=== PATIENT | male | born 1950 | race Caucasian/White ===

== ENCOUNTER → 2017-05-23 | Outpatient (CLI) | payer OTHER ==
[~2017-05-23] MED LIST: CALC-354; CHOL400T PO; KRIL1CAP7 PO; MULT-845 PO; OMEP20TA14 PO; RANI300T2 PO; SILD100T PO
[2017-05-23 10:04] VITALS: BP 135/87; PULSE 91; TEMP 36.9; O2SAT 98
== END | disposition home or self-care (01) ==
LOC: C.ONC 09:01
PROVIDERS: ATTEND Physician Assistant Medical
DX: C61 Malignant neoplasm of prostate (principal)

== ENCOUNTER → 2017-06-29 | Outpatient (CLI) | payer OTHER ==
[~2017-06-29] MED LIST changes: -CHOL400T PO; +GADAVIST IV PRN
--- NOTE | 2017-06-29 12:07 | DIAGNOSTIC IMAGING REPORT ---
PROSTATE MRI COMBO CLINICAL HISTORY: 67 years-old Male presenting with PROSTATE CA. PSA 5.9 ng/mL. TECHNIQUE: Multisequence, multiplanar MR imaging of the prostate was performed before and after the administration of intravenous contrast. Additional postprocessing was performed on a separate [employer] workstation by the radiologist for 3-D volumetric segmentation of the prostate IV contrast: 8 COMPARISON: None. FINDINGS: Prostate: The prostate measures 5.1 x 3.6 x 4.0 cm (DynaCAD prostate boundary segmentation volume 39.7 mL). Mild changes of benign prostatic hyperplasia. Precontrast T1 weighted imaging demonstrates few scattered foci of intrinsic T1 hyperintensity, possibly proteinaceous/hemorrhagic material. Seminal vesicles normal. Suspicious lesion(s) described below: Lesion ([employer]aCAD TASHA) 1: Location: Left posterolateral peripheral zone at the apex. The lesion does not extend across the midline. Size: 13 x 5 mm T2W: 4. Circumscribed, homogeneous moderately hypointense lesion. The lesion has an extended interface with the overlying capsule. No definite extra prostatic extension though this increases the risk for microinvasion. DWI: 4. Focal markedly hypointense on ADC and markedly hyperintense on high b-value DWI. DCE: Positive. Focal enhancement corresponding to a suspicious finding, earlier or contemporaneous with adjacent normal tissue. PI-RADS: 4. Clinically significant cancer is likely to be present. Lesion (DynaCAD TASHA) 2: Location: Right anterior transition zone at the mid gland. The lesion does not extend across the midline. Size: 10 x 5 mm T2W: 4. Circumscribed, homogeneous moderately hypointense lesion. No evidence of extraprostatic extension. DWI: 4. Focal markedly hypointense on ADC and markedly hyperintense on high b-value DWI. DCE: Negative. Diffuse enhancement not corresponding to a focal finding on other sequences. PI-RADS: 4. Clinically significant cancer is likely to be present. Bladder: Normal. Bowel: Visualized portion of the rectum normal. Peritoneum: Evidence for [place] gel placement. This is located between the prostate gland and rectum. This measures up to 1.3 cm in thickness. Lymph nodes: No lymphadenopathy in the visualized portion of the pelvis. Vasculature: Iliac vessels patent. Abdominal wall: Normal. Osseous structures: Normal bone marrow signal intensity. IMPRESSION: 1. Suspicious lesions within the prostate gland is described above which likely corresponds to the biopsy-proven malignancy. 2. The [place] gel appears to be in good location and measures up to 1.3 cm in thickness. Electronically signed by: Ap Tanner M.D. 06/29/2017 12:06 PM Dictated Date/Time: 06/29/2017 11:27 AM
== END | disposition home or self-care (01) ==
LOC: C.MRIBC 06-22 09:14
PROVIDERS: ATTEND Radiology Radiation Oncology
DX: C61 Malignant neoplasm of prostate (principal)

== ENCOUNTER → 2017-09-13 | Outpatient (CLI) | payer OTHER ==
[~2017-09-13] MED LIST changes: -GADAVIST IV PRN
[2017-09-13 14:04] VITALS: BP 129/86; PULSE 84; TEMP 36.4; O2SAT 96
--- NOTE | 2017-09-13 16:00 | Radiation Oncology Follow-Up ---
Radiation Oncology Follow-Up Date of Visit Sep 13, 2017. Reason For Visit One-month follow-up in cancer survivorship care plan Radiation Completion Date 08/16/17 Diagnosis (1) Prostate cancer Status: Acute Onset Date: 12/18/2016 Location: Both lobes of the prostate Histology Subtype: Adenocarcinoma Stage: ll (Biopsy stage) Permanent Comment: Rising PSA, pretreatment PSA 5.89 Status post ultrasound-guided biopsies 12/18/2016 Adenocarcinoma the prostate Tyra 3+3 and 3+4 Prostate volume 44 Prostate density 0.13 Recheck PSA May 23, 2017 was 7.330 No hormone suppression required Status post completion of radiation therapy August 16, 2017. He received 7000 centigrade utilizing hypo-fractionation. Last Edited By: Susana Rivera on Sep 13, 2017 15:58 History of Present Illness Mr. Jarvis is without a family history of prostate cancer. He is been followed with screening prostatespecific antigens. Results going back to 2000 were reviewed. His prostate-specific antigen has remained under 2005. On 02/21/2006 his prostate-specific antigen was 9.89 however these results were rechecked and on 06/29/2006 the prostate-specific antigen was 2.01. Prostate-specific antigen on 03/13/2007 was 1.8. Prostate-specific antigen on 2007 was 2.56. Prostate-specific antigen on 03/17/2009 was 2.05. Prostate- specific antigen in 05/25/2010 was 3.03. Prostate-specific antigen on 07/05/2011 was 2.76. Prostate-specific antigen on 10/12/2003 was 3.6 to the area prostatespecific antigen on 10/07/2014 was 4.28. Prostate-specific antigen on 10/22/2015 was 5.06. Prostate-specific antigen on 11/07/2016 was 5.89. With this persistent rise in prostate-specific antigen patient was seen by Dr. Mary Keith. She discussed the option of ultrasound-guided prostate biopsy due to the persistent prostate-specific antigen rise. The patient ultimately did agree. Ultrasound-guided biopsies were therefore performed on 12/18/2016. Estimated prostate volume was 44 g. With a presenting prostate-specific antigen of 5.89 his prostate-specific antigen density was 0.13. A total of 17 biopsies were taken. Biopsies from the left lateral base, left base, right base and right lateral base were benign. Biopsy from the left lateral mid gland was positive for prostatic adenocarcinoma [place] grade of 3+ 3 involving 70% of the core tissue sample without evidence of perineural invasion. 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 3 biopsies from the right mid gland revealed benign prostate tissue. Single biopsy from the right lateral mid gland was positive for prostatic adenocarcinoma [place] grade 3+4 involving 60% of the course tissue sample without evidence of perineural invasion. Single biopsy from the left lateral apex was positive for prostatic adenocarcinoma [place] grade 3+3 involving 60% of the core tissue sample without evidence of perineural invasion. Therefore total of 3 out of 17 biopsies were positive. Two were Tyra grade 3+3 and 1 was Tyra grade 3+4. Tyra pattern 4 component was less than 5% of the total tissue sample. Accession #: [id number]. The patient returned to review the biopsy information with Dr. Keith. She reviewed with the patient the treatment options. She arranged for the patient to be seen by Dr. Petr Montes. He saw Mr. Jarvis on 01/09/2017. He did an excellent job reviewing the treatment options for this patient. We were also asked to see the patient in referral to review with him the radiation treatment options. All options of therapy were reviewed with the patient. His ultimate decision was to go forward with radiation therapy. He had placement of Space OAR and gold fiducial markers on June 20, 2017. He completed treatment on August 16, 2017. He received 7000 centigrade utilizing hypo-fractionation. Interim History He has been doing well over the past month. In the past week he has noticed a great improvement in his urinary side effects. Today gave an AUA score of 8. At the end of treatment he had given an AUA score of 16. He had been taking Advil 2 pills twice a day at the end of treatment for his side effects. He did continue on the Advil for approximately a week and then steadily decreased the [id number] medication. He now uses it rarely. The bowel side effects of increased loose stool has also greatly improved. He does continue to take the Metamucil. He completed and expanded prostate cancer index composite for clinical practice and gave a score of 2 of 12 and urinary incontinence symptoms. He gave a score of 3 of 12 and urinary irritation symptoms. He gave a score of 3 of 12 and bowel symptoms. He gave a score of 4 of 12 and sexual symptoms. He gave a score of 0 12 and hormonal vitality symptoms. His total was 12 of 60. Allergies Coded Allergies: BEE STING (Verified Allergy, Unknown, ANAPHYLAXIS, 08/07/13) Iodinated Diagnostic Agents (Verified Allergy, Unknown, Swelling; Anaphylaxis;, 01/18/17) Levofloxacin (Verified Allergy, Unknown, general joint pain/burning, ) Tamsulosin (Unverified Allergy, Unknown, FLUSHED and itchy/burning of eyes , 01/18/17) Home Medications Scheduled Calcium Carbonate-Cholecalcife (Caltrate 600+D), DAILY Krill Oil (Krill Oil [place]-3), 1 CAP PO DAILY Multiple Vitamins W/ Minerals (Centrum Silver Adult 50+), 1 TAB PO QAM Omeprazole Magnesium (Prilosec Otc), 20 MG PO QAM Sildenafil Citrate (Viagra), 100 MG PO PRN Scheduled PRN Ranitidine Hcl (Zantac), 1 TAB PO HS PRN for Dyspepsia Review of Systems Gastrointestinal: Symptoms: WNL GI Comments: Metamucil BID Oral: Symptoms: No Problems Respiratory: Symptoms: WNL Urinary: Symptoms: WNL, Nocturia Comments: Nocturia x 1, See AUA & EPIC Skin: Symptoms: No Problems Physical Exam Vital Signs Date Time Temp Pulse Resp B/P (MAP) Pulse Ox O2 Delivery O2 Flow Rate FiO2 09/13/17 14:04 36.4 84 16 129/86 96 Fatigue: None General Appearance: no apparent distress Eyes: normal inspection, EOMI ENT: normal ENT inspection, hearing grossly normal Respiratory/Chest: lungs clear, no respiratory distress, no accessory muscle use Cardiovascular: regular rate, rhythm, no gallop, no murmur Abdomen: non tender, soft, no organomegaly Extremities: no pedal edema Neurologic/Psychiatric: no motor/sensory deficits, alert, normal mood/affect Skin: warm/dry Lymphatic: no adenopathy Pain Management Patient Reports Pain: No Pain Management Plan He denied pain therefore requires no pain management. Laboratory Laboratory Results: were reviewed, and pertinent findings noted below Laboratory Comments: Test 09/13/17 14:15 Prostate Specific Antigen 5.820 ng/ml (0.000-4.000) Pathology Pathology Results: were reviewed, and pertinent findings noted in HPI Imaging Imaging Studies: not applicable Assessment & Plan Plan: PSA was drawn today. He will be notified as to the results. He will continue regular follow-up with Dr. Keith and his primary care provider. He has an appointment see Dr. Keith November 15, 2017. He is to have a PSA prior to that visit. Today we completed a cancer survivorship care plan. A copy of the document was given to the patient. He was given a survivorship booklet. We asked him to return to our office in 6 months. He may call if he has any questions or concerns in the interim. Total Time In Follow-Up I spent 20 minutes speaking to the patient in performing examination. I spent 20 minutes reviewing information, preparing the survivorship document, and completing this note. Copy To Mary Keith MD; Alfonso Euceda M.D. ([facility])
== END | disposition home or self-care (01) ==
LOC: C.ONC 13:59
PROVIDERS: ATTEND Physician Assistant Medical
DX: Z08 Encounter for follow-up examination after completed treatment for malignant neoplasm (principal); Z92.3 Personal history of irradiation; Z85.46 Personal history of malignant neoplasm of prostate

== ENCOUNTER 2022-11-28 08:05 | Observation (INO) ==
[2022-11-28 08:31] LABS: iSTAT Creatinine 0.8 mg/dl (0.6-1.3); iSTAT Hemoglobin 13.3 g/dl (14.0-18.0); iSTAT Ionized Calcium 1.12 mmol/l (1.12-1.32); iSTAT Potassium 4.3 mmol/L (3.3-5.0)
--- NOTE | 2022-11-28 08:38 | Emergency Department Note ---
Impression & Plan Dizziness, Weakness, Ataxia ED Provider Note ED Provider Note NAME: EBER FISH AGE:72 SEX: Male : 1950 ARRIVES VIA: EMS INFORMANT: Patient ED PROVIDER(s): Aurelia Treviño DO CHIEF COMPLAINT: Dizziness, weakness HPI: This is a 72-year-old male presents emergency department via EMS from home due to concern for weakness and dizziness. Patient states he felt well yesterday, was out golfing, and felt well last night at bedtime. He states he got up to go to the bathroom this morning and felt weak and dizzy which he describes more as lightheaded than a sense of spinning. He states no prior history of vertigo. He states no recent change in routine medications although he was given a course of azithromycin last week by his dentist. Patient denies any recent travel or recent illness. He denies fevers, chills, headache, chest pain, palpitations, shortness of breath, cough. Patient noted to be very slow and deliberate with his speech. He states he does feel like it is harder than normal to formulate his words. PAST MEDICAL HISTORY:See Below PAST SURGICAL HISTORY:See Below FAMILY HISTORY:See Below SOCIAL HISTORY:See Below HOME MEDICATIONS:See Below ALLERGIES:See Below VITALS:See Below PHYSICAL EXAMINATION: GENERAL: alert, well appearing, well nourished, no distress, non-toxic EYE EXAM: normal conjunctiva, PERRL and EOM's grossly intact OROPHARYNX: no exudate, no erythema, lips, buccal mucosa, and tongue normal and mucous membranes are moist NECK: supple, no nuchal rigidity, no adenopathy, non-tender LUNGS: Clear to auscultation. Normal chest wall mechanics, no w/r/r HEART: no murmurs, S1 normal and S2 normal ABDOMEN: abdomen soft, non-tender, normo-active bowel sounds, no masses, no rebound or guarding. BACK: Back is symmetrical on inspection and there is no deformity, no midline tenderness, no CVA tenderness. SKIN: no rashes, petechiae, orbruising UPPER EXTREMITIES: upper extremities are grossly normal. FROM, nml pulses b/l. LOWER EXTREMITIES: No pitting edema. FROM, nml pulses b/l. NEURO EXAM: Normal sensorium, cranial nerves II-XII grossly intact, deliberate and slow speech without dysarthria, no facial droop,generalized weakness although left upper extremity and left lower extremity have accompanying mild ataxia and fatigue easier than the right. Gross sensation intact. Vital Signs: reviewed and remarkable Differential Diagnosis: ICH, CVA, LAVERNE, electrolyte abnormality, ACS, dissection, dysrhythmia, meningitis/encephalitis, tickborne illness, as well as others were concern MEDICAL DECISION MAKING: This is a 72-year-old male presents emergency department due to concern for weakness, dizziness, difficulty walking and a change in speech. Patient afebri le and vital signs stable. Labs drawn and sent, IV established, EKG performed at bedside interpreted by me and patient sent for CT of the head. Angiography of her neck to be performed as patient has anaphylaxis to IV dye. Noncontrast head CT was reassuring, although patient still had slight asymmetry as well as ataxia on a neuro exam and due to concern for underlying CVA, patient sent for stat MRI. Patient's other orders continue to result including reassuring labs, negative tickborne illness, negative bio fire nasal swab. MRI read as negative for acute process. Patient's speech did improve while he was present in the emergency room,, however he still complained of weakness, lightheadedness, and had a ataxia and an unsteady gait. I was concerned the patient was an ongoing fall risk. Due to concern for unclear etiology of symptoms and inability to walk, case was discussed with hospitalist for additional evaluation and management. I did discuss with them my conversation with him regarding his use of marijuana as this could be a contributing factor. Consultation(s): 1345: Discussed with Dr. Maria. ER Treatment Provided: See below 1002: Patient speech improved although he still complains of weakness, lightheadedness, and still has slight left-sided weakness compared to the right. We discussed additional MRI. Patient states he has had an MRI before though does get claustrophobic. We discussed small dose of Ativan to help facilitate this. 1250: Patient updated on MRI results at bedside. Repeat exam still shows some mild limb ataxia although improved compared to prior. Patient's speech is improved compared to prior. Patient denies any use of CBD containing products although admits to occasionally smoking weed. Diagnostics Interpreted By Me: -ECG: Normal sinus at 86, normal axis, normal intervals, no acute ST/T wave change -Cardiac Monitoring: An order was placed for continuous cardiac monitoring. The monitor shows a rate of [] with [] rhythm. -Laboratory studies: As stated above and show below. -Imaging studies: X-ray Chest: A single view study of the chest was reviewed and was negative for cardiomegaly, focal infiltrate, effusion, pulmonary edema, or wide mediastinum. 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 Surgical History History of arthroscopy of left knee History of cholecystectomy 2005 History of colonoscopy with polypectomy History of esophagogastroduodenoscopy (EGD) History of Mohs micrographic surgery for skin cancer multiple History of prostate biopsy History of root canal procedure Family History Mother Family hx of colon cancer Other No family history of adverse response to anesthesia Social History Smoking Status: Never smoker Second Hand Exposure: Yes (parents smoked); Do You Dip or Chew Tobacco: No; Hx Alcohol Use: Yes Alcohol type: beer and hard liquor Hx Substance Use: Yes Last Used Substance: Days (ago) Last Used Substance Other:: Yesterday Preferred Language: Polish Communication Ability: Effective Behavioral Sciences Department Chair Required: No Beliefs That Will Affect Care: None Current Living Situation: Alone Other Information That Helps Us Care for You: No Feels Safe at Home: Yes Safety Concerns: Feels Safe At This Time Assistive Devices: Glasses Allergies Allergies Allergy/AdvReac Type Severity Reaction Status Date / Time bee venom protein (honey bee) Allergy Severe ANAPHYLAXIS Verified 03/21/22 13:23 Iodinated Contrast Media Allergy Severe Swelling;An Verified 03/21/22 13:23 aphylaxis; levofloxacin Allergy Intermediate general Verified 03/21/22 13:23 joint pain/burning tamsulosin Allergy Intermediate FLUSHED Verified 03/21/22 13:23 and itchy/burning of eyes Home Meds Home Medications Medication Instructions Recorded Confirmed calcium carb,cit ER 600 mg-vit D3 1 tab PO QDD 01/16/19 11/28/22 12.5 mcg (500 unit) tablet,ext.rel ibuprofen-diphenhydramine citrate 1 cap PO HS PRN Sleep 01/16/19 11/28/22 200 mg-38 mg tablet (Advil PM) krill 1,000 mg-omega-3 170 mg-dha 1 cap PO QDD 01/16/19 11/28/22 50 mg-epa 80 uw-wpeztl-brreg capsule (krill oil) multivitamin 1 tab PO QDD 01/16/19 11/28/22 sildenafil (pulm.hypertension) 20 40 mg PO UD PRN Sexual Activity 01/16/19 11/28/22 mg tablet (Revatio) famotidine 20 mg tablet 20 mg PO DAILY PRN Acid Reflux 03/26/19 11/28/22 Previous Rx's Medication Instructions Recorded epinephrine 0.3 mg/0.3 mL 0.3 mg (0.3 mL) IM Q3H PRN 01/16/19 injection, auto-injector (EpiPen bronchodilation #2 ea 2-William) Results & Data (ED) Vital Signs Vital Signs - 24 hr 11/28/22 08:12 11/28/22 08:12 11/28/22 08:15 Temperature 36.9 C Temperature Source Oral Pulse Rate - Lying Pulse Rate - Sitting Pulse Rate - Standing Pulse Rate 91 H 85 Pulse Rate [Apical] Pulse Rate from SpO2 Sensor Respiratory Rate 14 Blood Pressure - Lying Blood Pressure - Sitting Blood Pressure- Standing Blood Pressure 138/79 Blood Pressure [Right Arm] Blood Pressure Mean 98 Blood Pressure Mean [Right Arm] Pulse Oximetry 95 89 L Oxygen Delivery Method Room Air Nasal Cannula Oxygen Flow Rate 0 Sepsis Recent Fever Within 48 Hours No Sepsis New/Unexplained Change in Mental Status No Sepsis Action Taken by Nursing No Action Required Oxygen Flow Rate - Titration 2 Pulse Oximetry Post Tiitration 96 11/28/22 08:14 11/28/22 08:30 11/28/22 08:30 Temperature Temperature Source Pulse Rate - Lying Pulse Rate - Sitting Pulse Rate - Standing Pulse Rate 112 H 82 Pulse Rate [Apical] Pulse Rate from SpO2 Sensor 82 Respiratory Rate 22 17 Blood Pressure - Lying Blood Pressure - Sitting Blood Pressure- Standing Blood Pressure 145/81 H Blood Pressure [Right Arm] Blood Pressure Mean 102 Blood Pressure Mean [Right Arm] Pulse Oximetry 95 Oxygen Delivery Method Nasal Cannula Oxygen Flow Rate 2 Sepsis Recent Fever Within 48 Hours Sepsis New/Unexplained Change in Mental Status Sepsis Action Taken by Nursing Oxygen Flow Rate - Titration Pulse Oximetry Post Tiitration 11/28/22 09:07 11/28/22 09:07 11/28/22 09:30 Temperature Temperature Source Pulse Rate - Lying Pulse Rate - Sitting Pulse Rate - Standing Pulse Rate 85 Pulse Rate [Apical] Pulse Rate from SpO2 Sensor 86 Respiratory Rate 17 Blood Pressure - Lying Blood Pressure - Sitting Blood Pressure- Standing Blood Pressure 140/84 139/79 Blood Pressure [Right Arm] Blood Pressure Mean 102 99 Blood Pressure Mean [Right Arm] Pulse Oximetry 97 Oxygen Delivery Method Nasal Cannula Oxygen Flow Rate 2 Sepsis Recent Fever Within 48 Hours Sepsis New/Unexplained Change in Mental Status Sepsis Action Taken by Nursing Oxygen Flow Rate - Titration Pulse Oximetry Post Tiitration 11/28/22 09:30 11/28/22 10:00 11/28/22 10:00 Temperature Temperature Source Pulse Rate - Lying Pulse Rate - Sitting Pulse Rate - Standing Pulse Rate 83 76 Pulse Rate [Apical] Pulse Rate from SpO2 Sensor 83 76 Respiratory Rate 16 14 Blood Pressure - Lying Blood Pressure - Sitting Blood Pressure- Standing Blood Pressure 134/78 Blood Pressure [Right Arm] Blood Pressure Mean 96 Blood Pressure Mean [Right Arm] Pulse Oximetry 98 98 Oxygen Delivery Method Oxygen Flow Rate Sepsis Recent Fever Within 48 Hours Sepsis New/Unexplained Change in Mental Status Sepsis Action Taken by Nursing Oxygen Flow Rate - Titration Pulse Oximetry Post Tiitration 11/28/22 10:30 11/28/22 10:30 11/28/22 11:00 Temperature Temperature Source Pulse Rate - Lying Pulse Rate - Sitting Pulse Rate - Standing Pulse Rate 77 Pulse Rate [Apical] Pulse Rate from SpO2 Sensor 77 Respiratory Rate 14 Blood Pressure - Lying Blood Pressure - Sitting Blood Pressure- Standing Blood Pressure 135/74 130/69 Blood Pressure [Right Arm] Blood Pressure Mean 94 89 Blood Pressure Mean [Right Arm] Pulse Oximetry 99 Oxygen Delivery Method Oxygen Flow Rate Sepsis Recent Fever Within 48 Hours Sepsis New/Unexplained Change in Mental Status Sepsis Action Taken by Nursing Oxygen Flow Rate - Titration Pulse Oximetry Post Tiitration 11/28/22 11:00 11/28/22 11:30 11/28/22 11:30 Temperature Temperature Source Pulse Rate - Lying Pulse Rate - Sitting Pulse Rate - Standing Pulse Rate 86 81 Pulse Rate [Apical] Pulse Rate from SpO2 Sensor 86 82 Respiratory Rate 16 18 Blood Pressure - Lying Blood Pressure - Sitting Blood Pressure- Standing Blood Pressure 136/71 Blood Pressure [Right Arm] Blood Pressure Mean 92 Blood Pressure Mean [Right Arm] Pulse Oximetry 96 94 Oxygen Delivery Method Room Air Room Air Oxygen Flow Rate Sepsis Recent Fever Within 48 Hours Sepsis New/Unexplained Change in Mental Status Sepsis Action Taken by Nursing Oxygen Flow Rate - Titration Pulse Oximetry Post Tiitration 11/28/22 13:06 11/28/22 13:10 11/28/22 14:00 Temperature Temperature Source Pulse Rate - Lying 82 Pulse Rate - Sitting 85 Pulse Rate - Standing 86 Pulse Rate Pulse Rate [Apical] 85 Pulse Rate from SpO2 Sensor Respiratory Rate 14 Blood Pressure - Lying 147/90 H Blood Pressure - Sitting 163/90 H Blood Pressure- Standing 160/84 H Blood Pressure 139/83 Blood Pressure [Right Arm] 147/90 H Blood Pressure Mean 101 Blood Pressure Mean [Right Arm] 109 Pulse Oximetry 96 Oxygen Delivery Method Room Air Oxygen Flow Rate Sepsis Recent Fever Within 48 Hours Sepsis New/Unexplained Change in Mental Status Sepsis Action Taken by Nursing Oxygen Flow Rate - Titration Pulse Oximetry Post Tiitration 11/28/22 14:00 11/28/22 14:21 Temperature Temperature Source Pulse Rate - Lying Pulse Rate - Sitting Pulse Rate - Standing Pulse Rate 79 77 Pulse Rate [Apical] Pulse Rate from SpO2 Sensor 78 Respiratory Rate 18 Blood Pressure - Lying Blood Pressure - Sitting Blood Pressure- Standing Blood Pressure Blood Pressure [Right Arm] Blood Pressure Mean Blood Pressure Mean [Right Arm] Pulse Oximetry 95 Oxygen Delivery Method Room Air Oxygen Flow Rate Sepsis Recent Fever Within 48 Hours Sepsis New/Unexplained Change in Mental Status Sepsis Action Taken by Nursing Oxygen Flow Rate - Titration Pulse Oximetry Post Tiitration Laboratory Data 11/28/22 08:36 11/28/22 08:36 Lab Results 11/28/22 11/28/22 11/28/22 Range/Units 08:13 08:19 08:36 WBC 4.30 L (4.8-10.8) K/ul RBC 4.32 L (4.70-6.10) M/uL Hgb 13.6 L (14.0-18.0) g/dl POC Hgb 13.3 L (14.0-18.0) g/dl Hct 39.5 L (42.0-52.0) % POC Hct 39 L (42-52) % MCV 91.4 (80.0-100.0) fL MCH 31.5 (25.0-34.0) pg MCHC 34.4 (32.0-36.0) g/dL RDW Std Deviation 41.8 (36.4-46.3) fL RDW Coeff of Sohail 12.5 (11.5-14.5) % Plt Count 223 (130-400) K/uL MPV 10.6 (9.4-12.4) fL Immature Gran % (Auto) 1.2 % Neut % (Auto) 68.6 % Lymph % (Auto) 20.2 % [place] % (Auto) 8.6 % Eos % (Auto) 0.7 % Baso % (Auto) 0.7 % Neut # (Auto) 2.95 (1.40-6.50) K/uL Lymph # (Auto) 0.87 L (1.2-3.4) K/uL [place] # (Auto) 0.37 (0.11-0.59) K/uL Eos # (Auto) 0.03 (0-0.50) K/uL Baso # (Auto) 0.03 (0-0.2) K/uL Immature Gran # (Auto) 0.05 (0.01-0.20) K/uL PT (9.0-12.0) Seconds INR (0.9-1.1) POC Sodium 139 (135-144) mmol/L Sodium (136-145) mmol/L POC Potassium 4.3 (3.3-5.0) mmol/L Potassium (3.5-5.1) mmol/L POC Chloride 105 (101-112) mmol/L Chloride (98-107) mmol/L Carbon Dioxide (21-32) mmol/L POC Total CO2 24 (24-31) mmol/L Anion Gap (3-11) POC Anion Gap 15.0 L (16-25) mmol/L POC BUN 17 (7-18) mg/dl BUN (6-23) mg/dl Creatinine (0.6-1.4) mg/dl POC Creatinine 0.8 (0.6-1.3) mg/dl Est Cr Clr Drug Dosing ml/min Est GFR ( Amer) ml/min Est GFR (Non-Af Amer) ml/min BUN/Creatinine Ratio (10-20) Glucose (70-99(Fasting)) mg/dl POC Glucose 123 H (70-99) mg/dl POC Glucose (other) 126 H (70-99) mg/dl Calcium (8.6-10.3) mg/dl POC Ioniz Calcium Alexei 1.12 (1.12-1.32) mmol/l Magnesium (1.7-2.4) mg/dl Total Bilirubin (0.2-1.0) mg/dl AST (13-39) U/L ALT (7-52) U/L Alkaline Phosphatase (34-104) U/L Troponin I High Sens (0-20) pg/ml Total Protein (6.0-8.3) gm/dl Albumin (3.4-5.0) gm/dl Globulin (2.5-4.0) gm/dl Albumin/Globulin Ratio (0.9-2) Lipase (11-82) U/L TSH (0.300-4.500) uIu/ml Urine Color Urine Appearance (Clear) Urine pH (4.5-7.5) Ur Specific [place] (1.000-1.030) Urine Protein (Negative) Urine Glucose (UA) (Negative) Urine Ketones (Negative) Urine Blood (Negative) Urine Nitrite (Negative) Urine Bilirubin (Negative) Urine Urobilinogen (Negative) Ur Leukocyte Esterase (Negative) Urine WBC (Auto) (0-5) /hpf Urine RBC (Auto) (0-4) /hpf U Hyaline Cast (Auto) (0-5) /lpf U Epithel Cells (Auto) (0-5) /lpf Urine Bacteria (Auto) (Negative) Urine Crystals Calcium Oxalate Crystal (None Prsent) Urine Mucus (None Prsent) Urine Opiates Screen (Neg) Ur Methadone, Qual (Neg) Urine Barbiturates (Neg) Ur Phencyclidine (PCP) (Neg) U Amphetamin/Meth Scrn (Neg) MDMA (Ecstasy) Screen (Neg) U Benzodiazepines Scrn (Neg) Ur Cocaine Metabolite (Neg) U Marijuana (THC) Screen (Neg) Adenovirus (PCR) (NotDetected) Anaplasma Smear Babesia Smear B. pertussis DNA (PCR) (NotDetected) B.parapertussis DNA PCR (NotDetected) Lyme Disease IgG Ab (Negative) Lyme Disease IgM Ab (Negative) C. pneumoniae DNA (PCR) (NotDetected) Coronavirus OC43 (PCR) (NotDetected) Coronavirus HKU1 (PCR) (NotDetected) Coronavirus 229E (PCR) (NotDetected) SARS-CoV-2 (PCR) (NotDetected) Coronavirus NL63 (PCR) (NotDetected) Human Metapneumovir PCR (NotDetected) Influenza Type A (PCR) (NotDetected) Influenza Type B (PCR) (NotDetected) M. pneumoniae (PCR) (NotDetected) Parainfluenza 1 (PCR) (NotDetected) Parainfluenza 2 (PCR) (NotDetected) Parainfluenza 3 (PCR) (NotDetected) Parainfluenza 4 (PCR) (NotDetected) RSV (PCR) (NotDetected) Entero/Rhino (PCR) (NotDetected) 11/28/22 11/28/22 11/28/22 Range/Units 08:36 08:37 08:37 WBC (4.8-10.8) K/ul RBC (4.70-6.10) M/uL Hgb (14.0-18.0) g/dl POC Hgb (14.0-18.0) g/dl Hct (42.0-52.0) % POC Hct (42-52) % MCV (80.0-100.0) fL MCH (25.0-34.0) pg MCHC (32.0-36.0) g/dL RDW Std Deviation (36.4-46.3) fL RDW Coeff of Sohail (11.5-14.5) % Plt Count (130-400) K/uL MPV (9.4-12.4) fL Immature Gran % (Auto) % Neut % (Auto) % Lymph % (Auto) % [place] % (Auto) % Eos % (Auto) % Baso % (Auto) % Neut # (Auto) (1.40-6.50) K/uL Lymph # (Auto) (1.2-3.4) K/uL [place] # (Auto) (0.11-0.59) K/uL Eos # (Auto) (0-0.50) K/uL Baso # (Auto) (0-0.2) K/uL Immature Gran # (Auto) (0.01-0.20) K/uL PT 10.9 (9.0-12.0) Seconds INR 1.0 (0.9-1.1) POC Sodium (135-144) mmol/L Sodium 139 (136-145) mmol/L POC Potassium (3.3-5.0) mmol/L Potassium 4.4 (3.5-5.1) mmol/L POC Chloride (101-112) mmol/L Chloride 106 (98-107) mmol/L Carbon Dioxide 25 (21-32) mmol/L POC Total CO2 (24-31) mmol/L Anion Gap 8 (3-11) POC Anion Gap (16-25) mmol/L POC BUN (7-18) mg/dl BUN 17 (6-23) mg/dl Creatinine 0.76 (0.6-1.4) mg/dl POC Creatinine (0.6-1.3) mg/dl Est Cr Clr Drug Dosing 87.9 ml/min Est GFR ( Amer) 105.6 ml/min Est GFR (Non-Af Amer) 91.1 ml/min BUN/Creatinine Ratio 22.4 H (10-20) Glucose 127 H (70-99(Fasting)) mg/dl POC Glucose (70-99) mg/dl POC Glucose (other) (70-99) mg/dl Calcium 8.9 (8.6-10.3) mg/dl POC Ioniz Calcium Alexei (1.12-1.32) mmol/l Magnesium 1.9 (1.7-2.4) mg/dl Total Bilirubin 0.4 (0.2-1.0) mg/dl AST 17 (13-39) U/L ALT 15 (7-52) U/L Alkaline Phosphatase 62 (34-104) U/L Troponin I High Sens < 2.3 (0-20) pg/ml Total Protein 6.7 (6.0-8.3) gm/dl Albumin 3.9 (3.4-5.0) gm/dl Globulin 2.8 (2.5-4.0) gm/dl Albumin/Globulin Ratio 1.4 (0.9-2) Lipase 8 L (11-82) U/L TSH 1.105 (0.300-4.500) uIu/ml Urine Color Urine Appearance (Clear) Urine pH (4.5-7.5) Ur Specific [place] (1.000-1.030) Urine Protein (Negative) Urine Glucose (UA) (Negative) Urine Ketones (Negative) Urine Blood (Negative) Urine Nitrite (Negative) Urine Bilirubin (Negative) Urine Urobilinogen (Negative) Ur Leukocyte Esterase (Negative) Urine WBC (Auto) (0-5) /hpf Urine RBC (Auto) (0-4) /hpf U Hyaline Cast (Auto) (0-5) /lpf U Epithel Cells (Auto) (0-5) /lpf Urine Bacteria (Auto) (Negative) Urine Crystals Calcium Oxalate Crystal (None Prsent) Urine Mucus (None Prsent) Urine Opiates Screen (Neg) Ur Methadone, Qual (Neg) Urine Barbiturates (Neg) Ur Phencyclidine (PCP) (Neg) U Amphetamin/Meth Scrn (Neg) MDMA (Ecstasy) Screen (Neg) U Benzodiazepines Scrn (Neg) Ur Cocaine Metabolite (Neg) U Marijuana (THC) Screen (Neg) Adenovirus (PCR) (NotDetected) Anaplasma Smear Babesia Smear B. pertussis DNA (PCR) (NotDetected) B.parapertussis DNA PCR (NotDetected) Lyme Disease IgG Ab (Negative) Lyme Disease IgM Ab (Negative) C. pneumoniae DNA (PCR) (NotDetected) Coronavirus OC43 (PCR) (NotDetected) Coronavirus HKU1 (PCR) (NotDetected) Coronavirus 229E (PCR) (NotDetected) SARS-CoV-2 (PCR) (NotDetected) Coronavirus NL63 (PCR) (NotDetected) Human Metapneumovir PCR (NotDetected) Influenza Type A (PCR) (NotDetected) Influenza Type B (PCR) (NotDetected) M. pneumoniae (PCR) (NotDetected) Parainfluenza 1 (PCR) (NotDetected) Parainfluenza 2 (PCR) (NotDetected) Parainfluenza 3 (PCR) (NotDetected) Parainfluenza 4 (PCR) (NotDetected) RSV (PCR) (NotDetected) Entero/Rhino (PCR) (NotDetected) 11/28/22 11/28/22 11/28/22 Range/Units 08:37 08:45 10:21 WBC (4.8-10.8) K/ul RBC (4.70-6.10) M/uL Hgb (14.0-18.0) g/dl POC Hgb (14.0-18.0) g/dl Hct (42.0-52.0) % POC Hct (42-52) % MCV (80.0-100.0) fL MCH (25.0-34.0) pg MCHC (32.0-36.0) g/dL RDW Std Deviation (36.4-46.3) fL RDW Coeff of Sohail (11.5-14.5) % Plt Count (130-400) K/uL MPV (9.4-12.4) fL Immature Gran % (Auto) % Neut % (Auto) % Lymph % (Auto) % [place] % (Auto) % Eos % (Auto) % Baso % (Auto) % Neut # (Auto) (1.40-6.50) K/uL Lymph # (Auto) (1.2-3.4) K/uL [place] # (Auto) (0.11-0.59) K/uL Eos # (Auto) (0-0.50) K/uL Baso # (Auto) (0-0.2) K/uL Immature Gran # (Auto) (0.01-0.20) K/uL PT (9.0-12.0) Seconds INR (0.9-1.1) POC Sodium (135-144) mmol/L Sodium (136-145) mmol/L POC Potassium (3.3-5.0) mmol/L Potassium (3.5-5.1) mmol/L POC Chloride (101-112) mmol/L Chloride (98-107) mmol/L Carbon Dioxide (21-32) mmol/L POC Total CO2 (24-31) mmol/L Anion Gap (3-11) POC Anion Gap (16-25) mmol/L POC BUN (7-18) mg/dl BUN (6-23) mg/dl Creatinine (0.6-1.4) mg/dl POC Creatinine (0.6-1.3) mg/dl Est Cr Clr Drug Dosing ml/min Est GFR ( Amer) ml/min Est GFR (Non-Af Amer) ml/min BUN/Creatinine Ratio (10-20) Glucose (70-99(Fasting)) mg/dl POC Glucose (70-99) mg/dl POC Glucose (other) (70-99) mg/dl Calcium (8.6-10.3) mg/dl POC Ioniz Calcium Alexei (1.12-1.32) mmol/l Magnesium (1.7-2.4) mg/dl Total Bilirubin (0.2-1.0) mg/dl AST (13-39) U/L ALT (7-52) U/L Alkaline Phosphatase (34-104) U/L Troponin I High Sens (0-20) pg/ml Total Protein (6.0-8.3) gm/dl Albumin (3.4-5.0) gm/dl Globulin (2.5-4.0) gm/dl Albumin/Globulin Ratio (0.9-2) Lipase (11-82) U/L TSH (0.300-4.500) uIu/ml Urine Color Yellow Urine Appearance Cloudy A (Clear) Urine pH 5.5 (4.5-7.5) Ur Specific [place] 1.024 (1.000-1.030) Urine Protein Negative (Negative) Urine Glucose (UA) Negative (Negative) Urine Ketones Trace H (Negative) Urine Blood Negative (Negative) Urine Nitrite Negative (Negative) Urine Bilirubin Negative (Negative) Urine Urobilinogen Negative (Negative) Ur Leukocyte Esterase Negative (Negative) Urine WBC (Auto) 1-5 (0-5) /hpf Urine RBC (Auto) 0-4 (0-4) /hpf U Hyaline Cast (Auto) 1-5 (0-5) /lpf U Epithel Cells (Auto) 20-30 H (0-5) /lpf Urine Bacteria (Auto) Negative (Negative) Urine Crystals Not Reportable Calcium Oxalate Crystal Present A (None Prsent) Urine Mucus Present A (None Prsent) Urine Opiates Screen (Neg) Ur Methadone, Qual (Neg) Urine Barbiturates (Neg) Ur Phencyclidine (PCP) (Neg) U Amphetamin/Meth Scrn (Neg) MDMA (Ecstasy) Screen (Neg) U Benzodiazepines Scrn (Neg) Ur Cocaine Metabolite (Neg) U Marijuana (THC) Screen (Neg) Adenovirus (PCR) Not Detected (NotDetected) Anaplasma Smear Babesia Smear B. pertussis DNA (PCR) Not Detected (NotDetected) B.parapertussis DNA PCR Not Detected (NotDetected) Lyme Disease IgG Ab Negative (Negative) Lyme Disease IgM Ab Negative (Negative) C. pneumoniae DNA (PCR) Not Detected (NotDetected) Coronavirus OC43 (PCR) Not Detected (NotDetected) Coronavirus HKU1 (PCR) Not Detected (NotDetected) Coronavirus 229E (PCR) Not Detected (NotDetected) SARS-CoV-2 (PCR) Not Detected (NotDetected) Coronavirus NL63 (PCR) Not Detected (NotDetected) Human Metapneumovir PCR Not Detected (NotDetected) Influenza Type A (PCR) Not Detected (NotDetected) Influenza Type B (PCR) Not Detected (NotDetected) M. pneumoniae (PCR) Not Detected (NotDetected) Parainfluenza 1 (PCR) Not Detected (NotDetected) Parainfluenza 2 (PCR) Not Detected (NotDetected) Parainfluenza 3 (PCR) Not Detected (NotDetected) Parainfluenza 4 (PCR) Not Detected (NotDetected) RSV (PCR) Not Detected (NotDetected) Entero/Rhino (PCR) Not Detected (NotDetected) 11/28/22 11/28/22 Range/Units 10:21 10:33 WBC (4.8-10.8) K/ul RBC (4.70-6.10) M/uL Hgb (14.0-18.0) g/dl POC Hgb (14.0-18.0) g/dl Hct (42.0-52.0) % POC Hct (42-52) % MCV (80.0-100.0) fL MCH (25.0-34.0) pg MCHC (32.0-36.0) g/dL RDW Std Deviation (36.4-46.3) fL RDW Coeff of Sohail (11.5-14.5) % Plt Count (130-400) K/uL MPV (9.4-12.4) fL Immature Gran % (Auto) % Neut % (Auto) % Lymph % (Auto) % [place] % (Auto) % Eos % (Auto) % Baso % (Auto) % Neut # (Auto) (1.40-6.50) K/uL Lymph # (Auto) (1.2-3.4) K/uL [place] # (Auto) (0.11-0.59) K/uL Eos # (Auto) (0-0.50) K/uL Baso # (Auto) (0-0.2) K/uL Immature Gran # (Auto) (0.01-0.20) K/uL PT (9.0-12.0) Seconds INR (0.9-1.1) POC Sodium (135-144) mmol/L Sodium (136-145) mmol/L POC Potassium (3.3-5.0) mmol/L Potassium (3.5-5.1) mmol/L POC Chloride (101-112) mmol/L Chloride (98-107) mmol/L Carbon Dioxide (21-32) mmol/L POC Total CO2 (24-31) mmol/L Anion Gap (3-11) POC Anion Gap (16-25) mmol/L POC BUN (7-18) mg/dl BUN (6-23) mg/dl Creatinine (0.6-1.4) mg/dl POC Creatinine (0.6-1.3) mg/dl Est Cr Clr Drug Dosing ml/min Est GFR ( Amer) ml/min Est GFR (Non-Af Amer) ml/min BUN/Creatinine Ratio (10-20) Glucose (70-99(Fasting)) mg/dl POC Glucose (70-99) mg/dl POC Glucose (other) (70-99) mg/dl Calcium (8.6-10.3) mg/dl POC Ioniz Calcium Alexei (1.12-1.32) mmol/l Magnesium (1.7-2.4) mg/dl Total Bilirubin (0.2-1.0) mg/dl AST (13-39) U/L ALT (7-52) U/L Alkaline Phosphatase (34-104) U/L Troponin I High Sens (0-20) pg/ml Total Protein (6.0-8.3) gm/dl Albumin (3.4-5.0) gm/dl Globulin (2.5-4.0) gm/dl Albumin/Globulin Ratio (0.9-2) Lipase (11-82) U/L TSH (0.300-4.500) uIu/ml Urine Color Urine Appearance (Clear) Urine pH (4.5-7.5) Ur Specific [place] (1.000-1.030) Urine Protein (Negative) Urine Glucose (UA) (Negative) Urine Ketones (Negative) Urine Blood (Negative) Urine Nitrite (Negative) Urine Bilirubin (Negative) Urine Urobilinogen (Negative) Ur Leukocyte Esterase (Negative) Urine WBC (Auto) (0-5) /hpf Urine RBC (Auto) (0-4) /hpf U Hyaline Cast (Auto) (0-5) /lpf U Epithel Cells (Auto) (0-5) /lpf Urine Bacteria (Auto) (Negative) Urine Crystals Calcium Oxalate Crystal (None Prsent) Urine Mucus (None Prsent) Urine Opiates Screen Neg (Neg) Ur Methadone, Qual Neg (Neg) Urine Barbiturates Neg (Neg) Ur Phencyclidine (PCP) Neg (Neg) U Amphetamin/Meth Scrn Neg (Neg) MDMA (Ecstasy) Screen Neg (Neg) U Benzodiazepines Scrn Neg (Neg) Ur Cocaine Metabolite Neg (Neg) U Marijuana (THC) Screen Pos H (Neg) Adenovirus (PCR) (NotDetected) Anaplasma Smear See Comment Babesia Smear See Comment B. pertussis DNA (PCR) (NotDetected) B.parapertussis DNA PCR (NotDetected) Lyme Disease IgG Ab (Negative) Lyme Disease IgM Ab (Negative) C. pneumoniae DNA (PCR) (NotDetected) Coronavirus OC43 (PCR) (NotDetected) Coronavirus HKU1 (PCR) (NotDetected) Coronavirus 229E (PCR) (NotDetected) SARS-CoV-2 (PCR) (NotDetected) Coronavirus NL63 (PCR) (NotDetected) Human Metapneumovir PCR (NotDetected) Influenza Type A (PCR) (NotDetected) Influenza Type B (PCR) (NotDetected) M. pneumoniae (PCR) (NotDetected) Parainfluenza 1 (PCR) (NotDetected) Parainfluenza 2 (PCR) (NotDetected) Parainfluenza 3 (PCR) (NotDetected) Parainfluenza 4 (PCR) (NotDetected) RSV (PCR) (NotDetected) Entero/Rhino (PCR) (NotDetected) Administered Medications Enoxaparin Sodium (Enoxaparin Inj 40 Mg/0.4 Ml Syr) 40 mg SQ Q24H EMI Stop: 12/28/22 14:29 Last Admin: 11/28/22 17:04 Dose: 40 mg Documented By: STEPHY Sodium Chloride (Nss 1000ml) 1,000 mls @ 125 mls/hr IV .Q8H EMI Stop: 12/28/22 08:44 Last Admin: 11/28/22 17:04 Dose: 125 mls/hr Documented By: Infusion: 11/28/22 10:30 Dose: 0 mls/hr Documented By: Admin: 11/28/22 09:00 Dose: 125 mls/hr Documented By: SAL Discontinued Medications Sodium Chloride (Nss 1000ml) 1,000 mls @ 999 mls/hr IV .Q1H1M ONE Stop: 11/28/22 12:18 Last Infusion: 11/28/22 11:35 Dose: 0 mls/hr Documented By: Admin: 11/28/22 10:35 Dose: 999 mls/hr Documented By: BARBI Lorazepam (Lorazepam 2 Mg/1 Ml Vial) 0.5 mg IV NOW PRN PRN Reason: Anxiety Stop: 12/28/22 11:02 Last Admin: 11/28/22 11:55 Dose: 0.5 mg Documented By: BARBI Imaging Data Radiologist's Impression: Chest X-Ray 11/28/22 08:36 SINGLE VIEW CHEST CLINICAL HISTORY: Hypoxia. Dizziness. FINDINGS: An AP, portable, upright chest radiograph is compared to study dated 12/13/2010. The top normal for projection and noting atherosclerotic calcification of the thoracic aorta. There is mild bibasilar atelectasis. The lungs and pleural spaces are otherwise clear. No pneumothorax is seen. The skeletal structures are osteopenic. The bony thorax is grossly intact. Cholecystectomy clips are seen in the right upper quadrant. IMPRESSION: No active disease in the chest. ACT 112: Negative or not required by law. Electronically signed by: Xavier Carreno M.D. 11/28/2022 8:[address] 11/28/22 08:36 CT SCAN OF THE BRAIN WITHOUT IV CONTRAST CLINICAL HISTORY: Dizziness. Change in mental status. COMPARISON STUDY: CT of the brain dated 07/10/2011. TECHNIQUE: Unenhanced axial CT scan of the brain is performed from the vertex to the skull base. A dose lowering technique was utilized adhering to the principles of ALARA. CT DOSE: 625.80 mGy.cm FINDINGS: Brain parenchyma: There is age-related involutional change noting mild subcortical and periventricular microangiopathic disease. There is no hemorrha ge, mass effect, or evidence of acute territorial ischemia by CT criteria. Johnson- white matter differentiation is preserved. No extra-axial fluid collection is seen. Ventricles, sulci, cisterns: Prominent secondary to involutional change. Intracranial vasculature: There is atherosclerotic calcification of the cavernous carotid and vertebral arteries. Calvarium: Unremarkable. Sinuses and mastoids: The visualized paranasal sinuses are clear. The mastoid air cells are well pneumatized. Orbits: The bony orbits are grossly intact. IMPRESSION: There is no hemorrhage, mass effect, or evidence of acute territorial ischemia by CT criteria. ACT 112: Negative or not required by law. Electronically signed by: Xavier Carreno M.D. 11/28/2022 9:16 AM Brain MRI 11/28/22 10:05 MRI OF THE BRAIN WITHOUT IV CONTRAST CLINICAL HISTORY: Left-sided weakness. Speech changes. COMPARISON STUDY: CT of the brain dated 11/28/2022. MRI of the brain dated 07/10/2011. TECHNIQUE: MRI of the brain was performed utilizing various T1 and T2-weighted sequences in the axial, sagittal, and coronal planes. IV contrast was not administered for this examination. FINDINGS: Brain parenchyma: There is age-related involutional change noting minimal microangiopathic disease. There is no hemorrhage or mass effect. There is no restricted diffusion to suggest acute ischemia. Johnson-white matter differentiation is preserved. No extra-axial fluid collection is seen. The cerebellar tonsils are normal in configuration. Ventricles, sulci, and cisterns: Prominent secondary to involutional change. Pituitary and sella: Unremarkable. Intracranial vasculature: Normal flow voids are maintained at the skull base. Orbits: The bony orbits are grossly intact. Orbital contents are normal in appearance. Sinuses and mastoids: There is trace mucosal thickening within the left maxillary antrum. The remaining paranasal sinuses and metatarsals are clear. Calvarium: Unremarkable. Cervical cord: Partially visualized cervical spinal cord is normal in morphology and signal intensity. IMPRESSION: No acute intracranial abnormality. ACT 112: Negative or not required by law. Electronically signed by: Xavier Carreno M.D. 11/28/2022 12:33 PM Discharge Plan Visit Data Chief Complaint: Weakness Stated Complaint: DIZZY, WEAKNESS ED Provider: Aurelia Treviño Discharge Problem: Dizziness, Weakness, Ataxia Discharge Instructions Interventions: ED Discharge Assessment Last Done: 11/28/22 15:47
[2022-11-28 08:53] LABS: Basophils # (auto) 0.03 K/uL (0-0.2); Basophils % (auto) 0.7 %; Eosinophils # (auto) 0.03 K/uL (0-0.50); Eosinophils % (auto) 0.7 %; Hematocrit (blood only) 39.5 % (42.0-52.0); Hemoglobin 13.6 g/dl (14.0-18.0); Immature Granulocytes # (auto) 0.05 K/uL (0.01-0.20); Immature Granulocytes % (auto) 1.2 %; Lymphocytes # (auto) 0.87 K/uL (1.2-3.4); Lymphocytes % (auto) 20.2 %; Mean Corpuscular Hemoglobin 31.5 pg (25.0-34.0); Mean Corpuscular Hgb Conc 34.4 g/dL (32.0-36.0); Mean Corpuscular Volume 91.4 fL (80.0-100.0); Mean Platelet Volume 10.6 fL (9.4-12.4); Monocytes # (auto) 0.37 K/uL (0.11-0.59); Monocytes % (auto) 8.6 %; Neutrophils # (auto) 2.95 K/uL (1.40-6.50); Neutrophils % (auto) 68.6 %; Platelet Count 223 K/uL (130-400); RDW Coefficient of Variation 12.5 % (11.5-14.5); RDW Standard Deviation 41.8 fL (36.4-46.3); Red Blood Count 4.32 M/uL (4.70-6.10)
--- NOTE | 2022-11-28 08:55 | XRay Report ---
SINGLE VIEW CHEST CLINICAL HISTORY: Hypoxia. Dizziness. FINDINGS: An AP, portable, upright chest radiograph is compared to study dated 12/13/2010. The top nor mal for projection and noting atherosclerotic calcification of the thoracic aorta. There is mild biba silar atelectasis. The lungs and pleural spaces are otherwise clear. No pneumothorax is seen. The ske letal structures are osteopenic. The bony thorax is grossly intact. Cholecystectomy clips are seen in the right upper quadrant. IMPRESSION: No active disease in the chest. ACT 112: Negative or not required by law. Electronically signed by: Xavier Carreno M.D. 11/28/2022 8:54 AM
[2022-11-28 08:57] LABS: Alanine Aminotransferase 15 U/L (7-52); Albumin Globulin Ratio 1.4 (0.9-2); Albumin Level 3.9 gm/dl (3.4-5.0); Alkaline Phosphatase 62 U/L (34-104); Anion Gap 8 (3-11); Aspartate Aminotransferase 17 U/L (13-39); BUN Creatinine Ratio 22.4 (10-20); Bilirubin,Total 0.4 mg/dl (0.2-1.0); Blood Urea Nitrogen 17 mg/dl (6-23); Calcium 8.9 mg/dl (8.6-10.3); Carbon Dioxide 25 mmol/L (21-32); Chloride 106 mmol/L (98-107); Creatinine Clr Calc Pharmacy 87.9 ml/min; Est GFR (African American) 105.6 ml/min; Est GFR (Non-African American) 91.1 ml/min; Globulin 2.8 gm/dl (2.5-4.0); Glucose 127 mg/dl (70-99(Fasting)); Lipase 8 U/L (11-82); Magnesium 1.9 mg/dl (1.7-2.4); Potassium 4.4 mmol/L (3.5-5.1); Sodium 139 mmol/L (136-145); Total Protein 6.7 gm/dl (6.0-8.3)
[2022-11-28] MEDS: SODIUM CHLORIDE 0.9% 1000ML 1,000 ML IV SCH ×3 (09:00→23:44)
[2022-11-28 09:03] LABS: Troponin I High Sensitivity < 2.3 pg/ml (0-20)
--- NOTE | 2022-11-28 09:18 | CT Scan Report ---
CT SCAN OF THE BRAIN WITHOUT IV CONTRAST CLINICAL HISTORY: Dizziness. Change in mental status. COMPARISON STUDY: CT of the brain dated 07/10/2011. TECHNIQUE: Unenhanced axial CT scan of the brain is performed from the vertex to the skull base. A do se lowering technique was utilized adhering to the principles of ALARA. CT DOSE: 625.80 mGy.cm FINDINGS: Brain parenchyma: There is age-related involutional change noting mild subcortical and periventricula r microangiopathic disease. There is no hemorrhage, mass effect, or evidence of acute territorial isc hemia by CT criteria. Johnson-white matter differentiation is preserved. No extra-axial fluid collection is seen. Ventricles, sulci, cisterns: Prominent secondary to involutional change. Intracranial vasculature: There is atherosclerotic calcification of the cavernous carotid and vertebr al arteries. Calvarium: Unremarkable. Sinuses and mastoids: The visualized paranasal sinuses are clear. The mastoid air cells are well pneu matized. Orbits: The bony orbits are grossly intact. IMPRESSION: There is no hemorrhage, mass effect, or evidence of acute territorial ischemia by CT martha denney. ACT 112: Negative or not required by law. Electronically signed by: Xavier Carreno M.D. 11/28/2022 9:16 AM
[2022-11-28 09:27] LABS: Prothrombin Time 10.9 Seconds (9.0-12.0)
[2022-11-28 09:30] LABS: Lyme Ab IgG w/WB Rflx Negative (Negative)
[2022-11-28 09:31] LABS: Lyme Ab IgM w/WB Rflx Negative (Negative)
[2022-11-28 09:58] LABS: Adenovirus PCR Not Detected (NotDetected); Bordetella parapertussis PCR Not Detected (NotDetected); Bordetella pertussis PCR Not Detected (NotDetected); Chlamydia pneumoniae PCR Not Detected (NotDetected); Coronavirus 229E PCR Not Detected (NotDetected); Coronavirus CoV-2 (COVID19)PCR Not Detected (NotDetected); Coronavirus HKU1 PCR Not Detected (NotDetected); Coronavirus NL63 PCR Not Detected (NotDetected); Coronavirus OC43PCR Not Detected (NotDetected); Human Metapneumovirus PCR Not Detected (NotDetected); Influenza A PCR Not Detected (NotDetected); Influenza B PCR Not Detected (NotDetected); Mycoplasma pneumoniae PCR Not Detected (NotDetected); Parainfluenza Virus 1 PCR Not Detected (NotDetected); Parainfluenza Virus 2 PCR Not Detected (NotDetected); Parainfluenza Virus 3 PCR Not Detected (NotDetected); Parainfluenza Virus 4 PCR Not Detected (NotDetected); Respiratory Syncytial VirusPCR Not Detected (NotDetected); Rhinovirus/Enterovirus PCR Not Detected (NotDetected)
[2022-11-28] MEDS ORDERED: LORazepam 2 MG/1 ML VIAL IV PRN (11:03)
[2022-11-28 11:14] LABS: Appearance Urine Cloudy (Clear); Bacteria Urine Automated Negative (Negative); Bilirubin Urine Negative (Negative); Blood Urine Negative (Negative); Color Urine Yellow; Epithelial Cell Urine Auto 20-30 /lpf (0-5); Glucose Urine UA Negative (Negative); Ketones Urine Trace (Negative); Leukocyte Esterase Urine Negative (Negative); Nitrite Urine Negative (Negative); Protein Urine Negative (Negative); RBC Urine Automated 0-4 /hpf (0-4); Specific Gravity Urine 1.024 (1.000-1.030); Urobilinogen Urine Negative (Negative); pH Urine 5.5 (4.5-7.5)
[2022-11-28] MEDS ORDERED: SODIUM CHLORIDE 0.9% 1000ML 1,000 ML IV ONE (11:18)
[2022-11-28 11:37] LABS: Mucus Urine Present (None Prsent)
[2022-11-28 11:38] LABS: Calcium Oxalate Crystals Urine Present (None Prsent)
[2022-11-28 12:28] LABS: Amphetamines+Metham, Urine Neg (Neg); Barbiturates, Urine Neg (Neg); Benzodiazepine, Urine Neg (Neg); Cocaine, Urine Neg (Neg); MDMA (Ecstacy), Urine Neg (Neg); Methadone, Urine Neg (Neg); Opiate, Urine Neg (Neg); Phencyclidine, Urine Neg (Neg)
--- NOTE | 2022-11-28 12:36 | Magnetic Resonance Report ---
MRI OF THE BRAIN WITHOUT IV CONTRAST CLINICAL HISTORY: Left-sided weakness. Speech changes. COMPARISON STUDY: CT of the brain dated 11/28/2022. MRI of the brain dated 07/10/2011. TECHNIQUE: MRI of the brain was performed utilizing various T1 and T2-weighted sequences in the axial , sagittal, and coronal planes. IV contrast was not administered for this examination. FINDINGS: Brain parenchyma: There is age-related involutional change noting minimal microangiopathic disease. T here is no hemorrhage or mass effect. There is no restricted diffusion to suggest acute ischemia. Gra y-white matter differentiation is preserved. No extra-axial fluid collection is seen. The cerebellar tonsils are normal in configuration. Ventricles, sulci, and cisterns: Prominent secondary to involutional change. Pituitary and sella: Unremarkable. Intracranial vasculature: Normal flow voids are maintained at the skull base. Orbits: The bony orbits are grossly intact. Orbital contents are normal in appearance. Sinuses and mastoids: There is trace mucosal thickening within the left maxillary antrum. The remaini ng paranasal sinuses and metatarsals are clear. Calvarium: Unremarkable. Cervical cord: Partially visualized cervical spinal cord is normal in morphology and signal intensity . IMPRESSION: No acute intracranial abnormality. ACT 112: Negative or not required by law. Electronically signed by: Xavier Carreno M.D. 11/28/2022 12:33 PM
[2022-11-28] MEDS ORDERED: ONDANSETRON INJ 2 MG/ML 2 ML VIAL IV PRN (14:23)
[2022-11-28] MEDS ORDERED: ALUMINUM/MAGNESIUM SUSP 30 ML UDC PO PRN (14:23)
[2022-11-28] MEDS ORDERED: ACETAMINOPHEN 325 MG TAB PO PRN (14:23)
[2022-11-28] MEDS ORDERED: POLYETHYLENE (MIRALAX) 17 GM PACK PO PRN (14:23)
[2022-11-28] MEDS ORDERED: FAMOTIDINE 20 MG TAB PO PRN (14:26)
--- NOTE | 2022-11-28 16:30 | History & Physical Report ---
Date of Service November 28, 2022 Assessment & Plan (1) AMS (altered mental status): Plan: no e/o infectious etiology or CVA on work up thus far gradually improving per family at bedside UDS + THC. Extent of symptoms is beyond what I would expect from THC. Per patient and family at bedside it sounds like Mr. Jarvis gets his weed from a consistent and reliable local source. They do not believe there is any possibility for contamination with other illicit substances. It also sounds like he is a habitual marijuana user and has not used any amount that is out of the ordinary for him (though they did not provide any specifics). Will consult neurology as I am at a loss as to what else could have caused this f/u remaining tick-born panel Present on Admission?: Yes (2) Hypoxia: Plan: no clear cause other than perhaps had some suppressed respiratory drive at presentation, possibly d/t mental status transient, briefly required 2 LPM O2, resolved without further intervention CXR neg for acute pathology denies sob, dyspnea monitor VS per protocol for now (3) Weakness: Plan: see under AMS Present on Admission?: Yes (4) Dizziness: Plan: see under AMS Present on Admission?: Yes Admission and Anticipated Discharge Date Admission Date: November 28, 2022 History of Present Illness Chief Complaint: AMS Primary Care Provider: Pedro James MD Mr. Jarvis is a 72 year old male with pmhx of Aj esophagus, SCC mult locations, prostate ca, and BPH. He presents with AMS. Thus far workup (including CTH and MRI brain) is unrevealing for anything other than + UDS for THC. Mr. Jarvis was in his usual state of health on the day prior to presentation, and in fact was out playing golf. When he got up to go to the bathroom this morning he was feeling weak and lightheaded/dizzy. He called his son who had to break the door down to get to him. His son states the patient was unable to walk due to what sounds like ataxia. He also notes Mr. Jarvis struggled to communicate. He was speaking very soft and slow, and had a hard time with word finding. This has never happened before. His son notes improvements in terms of communication and movement, but still not back to baseline. The patient does not appreciate any change in speech at this point and feels that other for some lightheadedness and being off balance he is back to baseline. Pt denies any recent or current illness. He denies GUY, focal weakness, numbness, tingling, incontinence, change in vision, CP/pressure, sob, f/c/n/v, abdominal pain or diarrhea. He has no other complaints. His son is concerned for possible tick born illness including [place] virus which has recently been found in areas the patient frequents. The patient spends a lot of time outdoors. ED course: vs notable for HR 112, BP 147/90, O2 89% ORA, wnl on 2L. Remaining VS unimpressive. b/w notable for wbc 4.3, h/h 13.6/39.5, remaining cbc and cmp are unimpressive/wnl. Mg and TSH wnl. UA is neg for bacteria. Respiratory pathogen panel is negative. Tick born studies are neg thus far (mult still pending) UDS + THC only CXR, CT head, MRI brain all negative for acute pathology. He was given IVF, Ativan, and placed in observation on hospitalist service. Allergies Allergy/AdvReac Type Severity Reaction Status Date / Time bee venom protein (honey bee) Allergy Severe ANAPHYLAXIS Verified 03/21/22 13:23 Iodinated Contrast Media Allergy Severe Swelling;An Verified 03/21/22 13:23 aphylaxis; levofloxacin Allergy Intermediate general Verified 03/21/22 13:23 joint pain/burning tamsulosin Allergy Intermediate FLUSHED Verified 03/21/22 13:23 and itchy/burning of eyes Home Medications Medication Instructions Recorded Confirmed Type calcium carb,cit ER 600 mg-vit D3 1 tab PO QDD 01/16/19 11/28/22 History 12.5 mcg (500 unit) tablet,ext.rel epinephrine 0.3 mg/0.3 mL 0.3 mg (0.3 mL) IM Q3H PRN 01/16/19 11/28/22 Rx injection, auto-injector (EpiPen bronchodilation #2 ea 2-William) ibuprofen-diphenhydramine citrate 1 cap PO HS PRN Sleep 01/16/19 11/28/22 History 200 mg-38 mg tablet (Advil PM) krill 1,000 mg-omega-3 170 mg-dha 1 cap PO QDD 01/16/19 11/28/22 History 50 mg-epa 80 yw-kmlcht-xpinz capsule (krill oil) multivitamin 1 tab PO QDD 01/16/19 11/28/22 History sildenafil (pulm.hypertension) 20 40 mg PO UD PRN Sexual Activity 01/16/19 11/28/22 History mg tablet (Revatio) famotidine 20 mg tablet 20 mg PO DAILY PRN Acid Reflux 03/26/19 11/28/22 History Past Med/Surg History Medical History (Updated 11/28/22 @ 16:58 by Mary Maria MD) Barretts esophagus BPH (benign prostatic hyperplasia) History of gastric ulcer History of radiation therapy for prostate cancer 2018 Melanoma of back 2016 Prostate cancer (12/18/16) 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 Surgical History History of arthroscopy of left knee History of cholecystectomy 2005 History of colonoscopy with polypectomy History of esophagogastroduodenoscopy (EGD) History of Mohs micrographic surgery for skin cancer multiple History of prostate biopsy History of root canal procedure Family History Mother Family hx of colon cancer Other No family history of adverse response to anesthesia Social History Smoking Status: Never smoker Second Hand Exposure: Yes (parents smoked); Do You Dip or Chew Tobacco: No; Hx Alcohol Use: Yes Alcohol type: beer and hard liquor Hx Substance Use: No Preferred Language: Kazakh Communication Ability: Effective Band Tacker Required: No Beliefs That Will Affect Care: None Current Living Situation: Spouse Feels Safe at Home: Yes Assistive Devices: Contacts and Glasses Review of Systems Review of Systems: All systems reviewed & are unremarkable except as noted in HPI & below Physical Exam Physical Exam: General: NAD, well nourished, well developed, non-toxic appearing Head: NC AT Eyes: PERRL, EOMI, anicteric sclera, no conjunctival injection Nose: nares patent Mouth: dry Neck: supple, trachea midline CV: RRR S1 S2 Pulm: CTA b/l Abd/GI: + BS, soft, NT, ND, no guarding : no cuevas Ext: no pretibial edema, peripheral pulses intact MSK: normal bulk and tone Neuro: alert, oriented x 3. CN II-XII intact, no dysarthria but soft spoken and slow to answer. moving all 4 extremities symmetrically. b/l hip adduction weakne ss is symmetric. sensation is intact. No dysmetria on finger to nose and heel to casanova testing. Psych: pleasant mood and affect Skin: visible skin is warm, dry, and without rash. Pt not fully undressed for exam. Results & Data Results & Data Vital Signs (Past 12 Hours) Vital Signs Temp Pulse Pulse Resp BP BP Pulse Ox 11/28/22 15:47 11/28/22 15:31 92 H 22 11/28/22 15:31 132/79 11/28/22 15:30 88 24 11/28/22 15:00 75 17 96 11/28/22 15:00 144/76 H 11/28/22 14:30 73 19 93 11/28/22 14:30 140/79 11/28/22 14:21 77 11/28/22 14:00 79 18 95 11/28/22 14:00 139/83 11/28/22 13:06 85 14 147/90 H 96 11/28/22 11:30 81 18 94 11/28/22 11:30 136/71 11/28/22 11:00 86 16 96 11/28/22 11:00 130/69 11/28/22 10:30 77 14 99 11/28/22 10:30 135/74 11/28/22 10:00 76 14 98 11/28/22 10:00 134/78 11/28/22 09:30 83 16 98 11/28/22 09:30 139/79 11/28/22 09:07 140/84 11/28/22 09:07 85 17 97 11/28/22 08:30 82 17 95 11/28/22 08:30 145/81 H 11/28/22 08:14 112 H 22 11/28/22 08:15 85 11/28/22 08:12 89 L 11/28/22 08:12 36.9 C 91 H 14 138/79 95 O2 Del Method O2 Flow Rate 11/28/22 15:47 Room Air 11/28/22 15:31 11/28/22 15:31 11/28/22 15:30 11/28/22 15:00 Room Air 11/28/22 15:00 11/28/22 14:30 Room Air 11/28/22 14:30 11/28/22 14:21 11/28/22 14:00 Room Air 11/28/22 14:00 11/28/22 13:06 Room Air 11/28/22 11:30 Room Air 11/28/22 11:30 11/28/22 11:00 Room Air 11/28/22 11:00 11/28/22 10:30 11/28/22 10:30 11/28/22 10:00 11/28/22 10:00 11/28/22 09:30 11/28/22 09:30 11/28/22 09:07 11/28/22 09:07 Nasal Cannula 2 11/28/22 08:30 Nasal Cannula 2 11/28/22 08:30 11/28/22 08:14 11/28/22 08:15 11/28/22 08:12 Nasal Cannula 0 11/28/22 08:12 Room Air Laboratory Results Short CBC 11/28/22 Range/Units 08:36 WBC 4.30 L (4.8-10.8) K/ul Hgb 13.6 L (14.0-18.0) g/dl Hct 39.5 L (42.0-52.0) % Plt Count 223 (130-400) K/uL BMP 11/28/22 08:36 Sodium 139 Potassium 4.4 Chloride 106 Carbon Dioxide 25 BUN 17 Creatinine 0.76 Glucose 127 H Calcium 8.9 Liver Function 11/28/22 Range/Units 08:36 Total Bilirubin 0.4 (0.2-1.0) mg/dl AST 17 (13-39) U/L ALT 15 (7-52) U/L Alkaline Phosphatase 62 (34-104) U/L Albumin 3.9 (3.4-5.0) gm/dl Urine 11/28/22 Range/Units 10:21 Urine Color Yellow Urine Appearance Cloudy A (Clear) Urine pH 5.5 (4.5-7.5) Ur Specific [place] 1.024 (1.000-1.030) Urine Protein Negative (Negative) Urine Glucose (UA) Negative (Negative) Diagnostic Findings Chest X-Ray 11/28/22 08:36 SINGLE VIEW CHEST CLINICAL HISTORY: Hypoxia. Dizziness. FINDINGS: An AP, portable, upright chest radiograph is compared to study dated 12/13/2010. The top normal for projection and noting atherosclerotic calcification of the thoracic aorta. There is mild bibasilar atelectasis. The lungs and pleural spaces are otherwise clear. No pneumothorax is seen. The skeletal structures are osteopenic. The bony thorax is grossly intact. Cholecystectomy clips are seen in the right upper quadrant. IMPRESSION: No active disease in the chest. Electronically signed by: Xavier Carreno M.D. 11/28/2022 8:[address] 11/28/22 08:36 CT SCAN OF THE BRAIN WITHOUT IV CONTRAST CLINICAL HISTORY: Dizziness. Change in mental status. COMPARISON STUDY: CT of the brain dated 07/10/2011. FINDINGS: Brain parenchyma: There is age-related involutional change noting mild subcortical and periventricular microangiopathic disease. There is no hemorrhage, mass effect, or evidence of acute territorial ischemia by CT criteria. Johnson-white matter differentiation is preserved. No extra-axial fluid collection is seen. Ventricles, sulci, cisterns: Prominent secondary to involutional change. Intracranial vasculature: There is atherosclerotic calcification of the cavernous carotid and vertebral arteries. Calvarium: Unremarkable. Sinuses and mastoids: The visualized paranasal sinuses are clear. The mastoid air cells are well pneumatized. Orbits: The bony orbits are grossly intact. IMPRESSION: There is no hemorrhage, mass effect, or evidence of acute territorial ischemia by CT criteria. Electronically signed by: Xavier Carreno M.D. 11/28/2022 9:16 AM Brain MRI 11/28/22 10:05 MRI OF THE BRAIN WITHOUT IV CONTRAST CLINICAL HISTORY: Left-sided weakness. Speech changes. COMPARISON STUDY: CT of the brain dated 11/28/2022. MRI of the brain dated 07/10/2011. TECHNIQUE: MRI of the brain was performed utilizing various T1 and T2-weighted sequences in the axial, sagittal, and coronal planes. IV contrast was not administered for this examination. FINDINGS: Brain parenchyma: There is age-related involutional change noting minimal microangiopathic disease. There is no hemorrhage or mass effect. There is no restricted diffusion to suggest acute ischemia. Johnson-white matter differentiation is preserved. No extra-axial fluid collection is seen. The cerebellar tonsils are normal in configuration. Ventricles, sulci, and cisterns: Prominent secondary to involutional change. Pituitary and sella: Unremarkable. Intracranial vasculature: Normal flow voids are maintained at the skull base. Orbits: The bony orbits are grossly intact. Orbital contents are normal in appearance. Sinuses and mastoids: There is trace mucosal thickening within the left maxillary antrum. The remaining paranasal sinuses and metatarsals are clear. Calvarium: Unremarkable. Cervical cord: Partially visualized cervical spinal cord is normal in morphology and signal intensity. IMPRESSION: No acute intracranial abnormality. Electronically signed by: Xavier Carreno M.D. 11/28/2022 12:33 PM Code Status & VTE Plan Code Status full VTE Prophylaxis Plan VTE Prophylaxis will be ordered: Yes
[2022-11-28] MEDS: ENOXAPARIN INJ 40 MG/0.4 ML SYR SQ SCH (17:04)
[2022-11-29 06:57] LABS: Basophils # (auto) 0.02 K/uL (0-0.2); Basophils % (auto) 0.7 %; Eosinophils # (auto) 0.09 K/uL (0-0.50); Hematocrit (blood only) 35.4 % (42.0-52.0); Immature Granulocytes # (auto) 0.01 K/uL (0.01-0.20); Immature Granulocytes % (auto) 0.3 %; Lymphocytes # (auto) 0.89 K/uL (1.2-3.4); Lymphocytes % (auto) 29.7 %; Mean Corpuscular Hemoglobin 31.2 pg (25.0-34.0); Mean Corpuscular Hgb Conc 33.9 g/dL (32.0-36.0); Mean Corpuscular Volume 91.9 fL (80.0-100.0); Mean Platelet Volume 10.6 fL (9.4-12.4); Monocytes # (auto) 0.35 K/uL (0.11-0.59); Monocytes % (auto) 11.7 %; Neutrophils # (auto) 1.64 K/uL (1.40-6.50); Neutrophils % (auto) 54.6 %; Platelet Count 159 K/uL (130-400); RDW Coefficient of Variation 12.9 % (11.5-14.5); Red Blood Count 3.85 M/uL (4.70-6.10)
[2022-11-29 07:29] LABS: BUN Creatinine Ratio 17.8 (10-20); Creatinine Clr Calc Pharmacy 91.8 ml/min; Est GFR (African American) 107.4 ml/min; Est GFR (Non-African American) 92.7 ml/min; Potassium 4.2 mmol/L (3.5-5.1)
[2022-11-29] MEDS: SODIUM CHLORIDE 0.9% 1000ML 1,000 ML IV SCH ×2 (07:45→17:44)
--- NOTE | 2022-11-29 08:12 | Hospitalist Progress Note ---
Date of Service November 29, 2022 Assessment & Plan (1) AMS (altered mental status): Plan: no e/o infectious etiology or CVA on work up thus far gradually improving per family at bedside UDS + THC. Extent of symptoms is beyond what I would expect from THC. Per patient and family at bedside it sounds like Mr. Jarvis gets his weed from a consistent and reliable local source. They do not believe there is any possibility for contamination with other illicit substances. It also sounds like he is a habitual marijuana user and has not used any amount that is out of the ordinary for him (though they did not provide any specifics). f/u remaining tick-born panel Neurology consulted - likely TIA, currently back to baseline - further work- up recommended - MRA head and neck, echo, fasting lipid panel, a1c (2) Hypoxia: Plan: no clear cause other than perhaps had some suppressed respiratory drive at presentation, possibly d/t mental status transient, briefly required 2 LPM O2, resolved without further intervention CXR neg for acute pathology denies sob, dyspnea monitor VS per protocol for now (3) Weakness: Plan: see under AMS (4) Dizziness: Plan: see under AMS Admission and Anticipated Discharge Date Admission Date: November 28, 2022 Subjective Pt seen in follow up of ams/ weakness, ? speech difficulty etc. Seen by neurology - likely TIA - further work-up pending Currently laying in bed in NAD, reports feeling back to baseline and normal, currently having echocardiogram done Denies fevers chills chest pain shortness of breath denies any weakness, denies feeling dizzy or lightheaded when ambulating to the bathroom Review of Systems Review of Systems: All systems reviewed & are unremarkable except as noted in Subjective Physical Exam Physical Exam: General:NAD, well nourished, well developed, non-toxic appearing Head:NC AT Eyes: PERRL, EOMI, anicteric sclera, no conjunctival injection Neck:supple CV:RRR S1 S2 Pulm:CTA b/l Abd/GI:+ BS, soft, NT, ND, no guarding Ext:no pretibial edema, peripheral pulses intact MSK:normal bulk and tone Neuro:alert, oriented x 3. CN II-XII intact, no dysarthria. moving all 4 extremities symmetrically. sensation is intact. Psych:pleasant mood and affect Skin: warm, dry Results & Data Results & Data Vital Signs (Past 12 Hours) Vital Signs Temp Pulse Resp BP Pulse Ox O2 Del Method 11/29/22 07:55 36.8 C 58 L 16 157/82 H 98 Room Air Laboratory Results 11/29/22 11/29/22 11/28/22 Range/Units 06:37 06:37 10:33 WBC 3.00 L (4.8-10.8) K/ul RBC 3.85 L (4.70-6.10) M/uL Hgb 12.0 L (14.0-18.0) g/dl POC Hgb (14.0-18.0) g/dl Hct 35.4 L (42.0-52.0) % POC Hct (42-52) % MCV 91.9 (80.0-100.0) fL MCH 31.2 (25.0-34.0) pg MCHC 33.9 (32.0-36.0) g/dL RDW Std Deviation 43.0 (36.4-46.3) fL RDW Coeff of Sohail 12.9 (11.5-14.5) % Plt Count 159 (130-400) K/uL MPV 10.6 (9.4-12.4) fL Immature Gran % (Auto) 0.3 % Neut % (Auto) 54.6 % Lymph % (Auto) 29.7 % [place] % (Auto) 11.7 % Eos % (Auto) 3.0 % Baso % (Auto) 0.7 % Neut # (Auto) 1.64 (1.40-6.50) K/uL Lymph # (Auto) 0.89 L (1.2-3.4) K/uL [place] # (Auto) 0.35 (0.11-0.59) K/uL Eos # (Auto) 0.09 (0-0.50) K/uL Baso # (Auto) 0.02 (0-0.2) K/uL Immature Gran # (Auto) 0.01 (0.01-0.20) K/uL PT (9.0-12.0) Seconds INR (0.9-1.1) POC Sodium (135-144) mmol/L Sodium 140 (136-145) mmol/L POC Potassium (3.3-5.0) mmol/L Potassium 4.2 (3.5-5.1) mmol/L POC Chloride (101-112) mmol/L Chloride 109 H (98-107) mmol/L Carbon Dioxide 28 (21-32) mmol/L POC Total CO2 (24-31) mmol/L Anion Gap 3 (3-11) POC Anion Gap (16-25) mmol/L POC BUN (7-18) mg/dl BUN 13 (6-23) mg/dl Creatinine 0.73 (0.6-1.4) mg/dl POC Creatinine (0.6-1.3) mg/dl Est Cr Clr Drug Dosing 91.8 ml/min Est GFR ( Amer) 107.4 ml/min Est GFR (Non-Af Amer) 92.7 ml/min BUN/Creatinine Ratio 17.8 (10-20) Glucose 95 (70-99(Fasting)) mg/dl POC Glucose (70-99) mg/dl POC Glucose (other) (70-99) mg/dl Calcium 8.0 L (8.6-10.3) mg/dl POC Ioniz Calcium Alexei (1.12-1.32) mmol/l Magnesium (1.7-2.4) mg/dl Total Bilirubin (0.2-1.0) mg/dl AST (13-39) U/L ALT (7-52) U/L Alkaline Phosphatase (34-104) U/L Troponin I High Sens (0-20) pg/ml Total Protein (6.0-8.3) gm/dl Albumin (3.4-5.0) gm/dl Globulin (2.5-4.0) gm/dl Albumin/Globulin Ratio (0.9-2) Lipase (11-82) U/L TSH (0.300-4.500) uIu/ml Urine Color Urine Appearance (Clear) Urine pH (4.5-7.5) Ur Specific [place] (1.000-1.030) Urine Protein (Negative) Urine Glucose (UA) (Negative) Urine Ketones (Negative) Urine Blood (Negative) Urine Nitrite (Negative) Urine Bilirubin (Negative) Urine Urobilinogen (Negative) Ur Leukocyte Esterase (Negative) Urine WBC (Auto) (0-5) /hpf Urine RBC (Auto) (0-4) /hpf U Hyaline Cast (Auto) (0-5) /lpf U Epithel Cells (Auto) (0-5) /lpf Urine Bacteria (Auto) (Negative) Urine Crystals Calcium Oxalate Crystal (None Prsent) Urine Mucus (None Prsent) Urine Opiates Screen (Neg) Ur Methadone, Qual (Neg) Urine Barbiturates (Neg) Ur Phencyclidine (PCP) (Neg) U Amphetamin/Meth Scrn (Neg) MDMA (Ecstasy) Screen (Neg) U Benzodiazepines Scrn (Neg) Ur Cocaine Metabolite (Neg) U Marijuana (THC) Screen (Neg) U Marijuana THC Carboxy Drug Screen Comment Adenovirus (PCR) (NotDetected) Anaplasma Smear Babesia Smear Babesia microti DNA PCR Pending B. pertussis DNA (PCR) (NotDetected) B.parapertussis DNA PCR (NotDetected) Lyme Disease IgG Ab (Negative) Lyme Disease IgM Ab (Negative) C. pneumoniae DNA (PCR) (NotDetected) Coronavirus OC43 (PCR) (NotDetected) Coronavirus HKU1 (PCR) (NotDetected) Coronavirus 229E (PCR) (NotDetected) SARS-CoV-2 (PCR) (NotDetected) Coronavirus NL63 (PCR) (NotDetected) E.chaffeensis DNA (PCR) Human Metapneumovir PCR (NotDetected) Influenza Type A (PCR) (NotDetected) Influenza Type B (PCR) (NotDetected) M. pneumoniae (PCR) (NotDetected) Parainfluenza 1 (PCR) (NotDetected) Parainfluenza 2 (PCR) (NotDetected) Parainfluenza 3 (PCR) (NotDetected) Parainfluenza 4 (PCR) (NotDetected) RSV (PCR) (NotDetected) Entero/Rhino (PCR) (NotDetected) 11/28/22 11/28/22 11/28/22 Range/Units 10:33 10:33 10:21 WBC (4.8-10.8) K/ul RBC (4.70-6.10) M/uL Hgb (14.0-18.0) g/dl POC Hgb (14.0-18.0) g/dl Hct (42.0-52.0) % POC Hct (42-52) % MCV (80.0-100.0) fL MCH (25.0-34.0) pg MCHC (32.0-36.0) g/dL RDW Std Deviation (36.4-46.3) fL RDW Coeff of Sohail (11.5-14.5) % Plt Count (130-400) K/uL MPV (9.4-12.4) fL Immature Gran % (Auto) % Neut % (Auto) % Lymph % (Auto) % [place] % (Auto) % Eos % (Auto) % Baso % (Auto) % Neut # (Auto) (1.40-6.50) K/uL Lymph # (Auto) (1.2-3.4) K/uL [place] # (Auto) (0.11-0.59) K/uL Eos # (Auto) (0-0.50) K/uL Baso # (Auto) (0-0.2) K/uL Immature Gran # (Auto) (0.01-0.20) K/uL PT (9.0-12.0) Seconds INR (0.9-1.1) POC Sodium (135-144) mmol/L Sodium (136-145) mmol/L POC Potassium (3.3-5.0) mmol/L Potassium (3.5-5.1) mmol/L POC Chloride (101-112) mmol/L Chloride (98-107) mmol/L Carbon Dioxide (21-32) mmol/L POC Total CO2 (24-31) mmol/L Anion Gap (3-11) POC Anion Gap (16-25) mmol/L POC BUN (7-18) mg/dl BUN (6-23) mg/dl Creatinine (0.6-1.4) mg/dl POC Creatinine (0.6-1.3) mg/dl Est Cr Clr Drug Dosing ml/min Est GFR ( Amer) ml/min Est GFR (Non-Af Amer) ml/min BUN/Creatinine Ratio (10-20) Glucose (70-99(Fasting)) mg/dl POC Glucose (70-99) mg/dl POC Glucose (other) (70-99) mg/dl Calcium (8.6-10.3) mg/dl POC Ioniz Calcium Alexei (1.12-1.32) mmol/l Magnesium (1.7-2.4) mg/dl Total Bilirubin (0.2-1.0) mg/dl AST (13-39) U/L ALT (7-52) U/L Alkaline Phosphatase (34-104) U/L Troponin I High Sens (0-20) pg/ml Total Protein (6.0-8.3) gm/dl Albumin (3.4-5.0) gm/dl Globulin (2.5-4.0) gm/dl Albumin/Globulin Ratio (0.9-2) Lipase (11-82) U/L TSH (0.300-4.500) uIu/ml Urine Color Urine Appearance (Clear) Urine pH (4.5-7.5) Ur Specific [place] (1.000-1.030) Urine Protein (Negative) Urine Glucose (UA) (Negative) Urine Ketones (Negative) Urine Blood (Negative) Urine Nitrite (Negative) Urine Bilirubin (Negative) Urine Urobilinogen (Negative) Ur Leukocyte Esterase (Negative) Urine WBC (Auto) (0-5) /hpf Urine RBC (Auto) (0-4) /hpf U Hyaline Cast (Auto) (0-5) /lpf U Epithel Cells (Auto) (0-5) /lpf Urine Bacteria (Auto) (Negative) Urine Crystals Calcium Oxalate Crystal (None Prsent) Urine Mucus (None Prsent) Urine Opiates Screen (Neg) Ur Methadone, Qual (Neg) Urine Barbiturates (Neg) Ur Phencyclidine (PCP) (Neg) U Amphetamin/Meth Scrn (Neg) MDMA (Ecstasy) Screen (Neg) U Benzodiazepines Scrn (Neg) Ur Cocaine Metabolite (Neg) U Marijuana (THC) Screen (Neg) U Marijuana THC Carboxy Pending Drug Screen Comment Pending Adenovirus (PCR) (NotDetected) Anaplasma Smear See Comment Babesia Smear See Comment Babesia microti DNA PCR B. pertussis DNA (PCR) (NotDetected) B.parapertussis DNA PCR (NotDetected) Lyme Disease IgG Ab (Negative) Lyme Disease IgM Ab (Negative) C. pneumoniae DNA (PCR) (NotDetected) Coronavirus OC43 (PCR) (NotDetected) Coronavirus HKU1 (PCR) (NotDetected) Coronavirus 229E (PCR) (NotDetected) SARS-CoV-2 (PCR) (NotDetected) Coronavirus NL63 (PCR) (NotDetected) E.chaffeensis DNA (PCR) Pending Human Metapneumovir PCR (NotDetected) Influenza Type A (PCR) (NotDetected) Influenza Type B (PCR) (NotDetected) M. pneumoniae (PCR) (NotDetected) Parainfluenza 1 (PCR) (NotDetected) Parainfluenza 2 (PCR) (NotDetected) Parainfluenza 3 (PCR) (NotDetected) Parainfluenza 4 (PCR) (NotDetected) RSV (PCR) (NotDetected) Entero/Rhino (PCR) (NotDetected) 11/28/22 11/28/22 11/28/22 Range/Units 10:21 10:21 08:45 WBC (4.8-10.8) K/ul RBC (4.70-6.10) M/uL Hgb (14.0-18.0) g/dl POC Hgb (14.0-18.0) g/dl Hct (42.0-52.0) % POC Hct (42-52) % MCV (80.0-100.0) fL MCH (25.0-34.0) pg MCHC (32.0-36.0) g/dL RDW Std Deviation (36.4-46.3) fL RDW Coeff of Sohail (11.5-14.5) % Plt Count (130-400) K/uL MPV (9.4-12.4) fL Immature Gran % (Auto) % Neut % (Auto) % Lymph % (Auto) % [place] % (Auto) % Eos % (Auto) % Baso % (Auto) % Neut # (Auto) (1.40-6.50) K/uL Lymph # (Auto) (1.2-3.4) K/uL [place] # (Auto) (0.11-0.59) K/uL Eos # (Auto) (0-0.50) K/uL Baso # (Auto) (0-0.2) K/uL Immature Gran # (Auto) (0.01-0.20) K/uL PT (9.0-12.0) Seconds INR (0.9-1.1) POC Sodium (135-144) mmol/L Sodium (136-145) mmol/L POC Potassium (3.3-5.0) mmol/L Potassium (3.5-5.1) mmol/L POC Chloride (101-112) mmol/L Chloride (98-107) mmol/L Carbon Dioxide (21-32) mmol/L POC Total CO2 (24-31) mmol/L Anion Gap (3-11) POC Anion Gap (16-25) mmol/L POC BUN (7-18) mg/dl BUN (6-23) mg/dl Creatinine (0.6-1.4) mg/dl POC Creatinine (0.6-1.3) mg/dl Est Cr Clr Drug Dosing ml/min Est GFR ( Amer) ml/min Est GFR (Non-Af Amer) ml/min BUN/Creatinine Ratio (10-20) Glucose (70-99(Fasting)) mg/dl POC Glucose (70-99) mg/dl POC Glucose (other) (70-99) mg/dl Calcium (8.6-10.3) mg/dl POC Ioniz Calcium Alexei (1.12-1.32) mmol/l Magnesium (1.7-2.4) mg/dl Total Bilirubin (0.2-1.0) mg/dl AST (13-39) U/L ALT (7-52) U/L Alkaline Phosphatase (34-104) U/L Troponin I High Sens (0-20) pg/ml Total Protein (6.0-8.3) gm/dl Albumin (3.4-5.0) gm/dl Globulin (2.5-4.0) gm/dl Albumin/Globulin Ratio (0.9-2) Lipase (11-82) U/L TSH (0.300-4.500) uIu/ml Urine Color Yellow Urine Appearance Cloudy A (Clear) Urine pH 5.5 (4.5-7.5) Ur Specific [place] 1.024 (1.000-1.030) Urine Protein Negative (Negative) Urine Glucose (UA) Negative (Negative) Urine Ketones Trace H (Negative) Urine Blood Negative (Negative) Urine Nitrite Negative (Negative) Urine Bilirubin Negative (Negative) Urine Urobilinogen Negative (Negative) Ur Leukocyte Esterase Negative (Negative) Urine WBC (Auto) 1-5 (0-5) /hpf Urine RBC (Auto) 0-4 (0-4) /hpf U Hyaline Cast (Auto) 1-5 (0-5) /lpf U Epithel Cells (Auto) 20-30 H (0-5) /lpf Urine Bacteria (Auto) Negative (Negative) Urine Crystals Not Reportable Calcium Oxalate Crystal Present A (None Prsent) Urine Mucus Present A (None Prsent) Urine Opiates Screen Neg (Neg) Ur Methadone, Qual Neg (Neg) Urine Barbiturates Neg (Neg) Ur Phencyclidine (PCP) Neg (Neg) U Amphetamin/Meth Scrn Neg (Neg) MDMA (Ecstasy) Screen Neg (Neg) U Benzodiazepines Scrn Neg (Neg) Ur Cocaine Metabolite Neg (Neg) U Marijuana (THC) Screen Pos H (Neg) U Marijuana THC Carboxy Drug Screen Comment Adenovirus (PCR) Not Detected (NotDetected) Anaplasma Smear Babesia Smear Babesia microti DNA PCR B. pertussis DNA (PCR) Not Detected (NotDetected) B.parapertussis DNA PCR Not Detected (NotDetected) Lyme Disease IgG Ab (Negative) Lyme Disease IgM Ab (Negative) C. pneumoniae DNA (PCR) Not Detected (NotDetected) Coronavirus OC43 (PCR) Not Detected (NotDetected) Coronavirus HKU1 (PCR) Not Detected (NotDetected) Coronavirus 229E (PCR) Not Detected (NotDetected) SARS-CoV-2 (PCR) Not Detected (NotDetected) Coronavirus NL63 (PCR) Not Detected (NotDetected) E.chaffeensis DNA (PCR) Human Metapneumovir PCR Not Detected (NotDetected) Influenza Type A (PCR) Not Detected (NotDetected) Influenza Type B (PCR) Not Detected (NotDetected) M. pneumoniae (PCR) Not Detected (NotDetected) Parainfluenza 1 (PCR) Not Detected (NotDetected) Parainfluenza 2 (PCR) Not Detected (NotDetected) Parainfluenza 3 (PCR) Not Detected (NotDetected) Parainfluenza 4 (PCR) Not Detected (NotDetected) RSV (PCR) Not Detected (NotDetected) Entero/Rhino (PCR) Not Detected (NotDetected) 11/28/22 11/28/22 11/28/22 Range/Units 08:37 08:37 08:37 WBC (4.8-10.8) K/ul RBC (4.70-6.10) M/uL Hgb (14.0-18.0) g/dl POC Hgb (14.0-18.0) g/dl Hct (42.0-52.0) % POC Hct (42-52) % MCV (80.0-100.0) fL MCH (25.0-34.0) pg MCHC (32.0-36.0) g/dL RDW Std Deviation (36.4-46.3) fL RDW Coeff of Sohail (11.5-14.5) % Plt Count (130-400) K/uL MPV (9.4-12.4) fL Immature Gran % (Auto) % Neut % (Auto) % Lymph % (Auto) % [place] % (Auto) % Eos % (Auto) % Baso % (Auto) % Neut # (Auto) (1.40-6.50) K/uL Lymph # (Auto) (1.2-3.4) K/uL [place] # (Auto) (0.11-0.59) K/uL Eos # (Auto) (0-0.50) K/uL Baso # (Auto) (0-0.2) K/uL Immature Gran # (Auto) (0.01-0.20) K/uL PT 10.9 (9.0-12.0) Seconds INR 1.0 (0.9-1.1) POC Sodium (135-144) mmol/L Sodium (136-145) mmol/L POC Potassium (3.3-5.0) mmol/L Potassium (3.5-5.1) mmol/L POC Chloride (101-112) mmol/L Chloride (98-107) mmol/L Carbon Dioxide (21-32) mmol/L POC Total CO2 (24-31) mmol/L Anion Gap (3-11) POC Anion Gap (16-25) mmol/L POC BUN (7-18) mg/dl BUN (6-23) mg/dl Creatinine (0.6-1.4) mg/dl POC Creatinine (0.6-1.3) mg/dl Est Cr Clr Drug Dosing ml/min Est GFR ( Amer) ml/min Est GFR (Non-Af Amer) ml/min BUN/Creatinine Ratio (10-20) Glucose (70-99(Fasting)) mg/dl POC Glucose (70-99) mg/dl POC Glucose (other) (70-99) mg/dl Calcium (8.6-10.3) mg/dl POC Ioniz Calcium Alexei (1.12-1.32) mmol/l Magnesium (1.7-2.4) mg/dl Total Bilirubin (0.2-1.0) mg/dl AST (13-39) U/L ALT (7-52) U/L Alkaline Phosphatase (34-104) U/L Troponin I High Sens (0-20) pg/ml Total Protein (6.0-8.3) gm/dl Albumin (3.4-5.0) gm/dl Globulin (2.5-4.0) gm/dl Albumin/Globulin Ratio (0.9-2) Lipase (11-82) U/L TSH 1.105 (0.300-4.500) uIu/ml Urine Color Urine Appearance (Clear) Urine pH (4.5-7.5) Ur Specific [place] (1.000-1.030) Urine Protein (Negative) Urine Glucose (UA) (Negative) Urine Ketones (Negative) Urine Blood (Negative) Urine Nitrite (Negative) Urine Bilirubin (Negative) Urine Urobilinogen (Negative) Ur Leukocyte Esterase (Negative) Urine WBC (Auto) (0-5) /hpf Urine RBC (Auto) (0-4) /hpf U Hyaline Cast (Auto) (0-5) /lpf U Epithel Cells (Auto) (0-5) /lpf Urine Bacteria (Auto) (Negative) Urine Crystals Calcium Oxalate Crystal (None Prsent) Urine Mucus (None Prsent) Urine Opiates Screen (Neg) Ur Methadone, Qual (Neg) Urine Barbiturates (Neg) Ur Phencyclidine (PCP) (Neg) U Amphetamin/Meth Scrn (Neg) MDMA (Ecstasy) Screen (Neg) U Benzodiazepines Scrn (Neg) Ur Cocaine Metabolite (Neg) U Marijuana (THC) Screen (Neg) U Marijuana THC Carboxy Drug Screen Comment Adenovirus (PCR) (NotDetected) Anaplasma Smear Babesia Smear Babesia microti DNA PCR B. pertussis DNA (PCR) (NotDetected) B.parapertussis DNA PCR (NotDetected) Lyme Disease IgG Ab Negative (Negative) Lyme Disease IgM Ab Negative (Negative) C. pneumoniae DNA (PCR) (NotDetected) Coronavirus OC43 (PCR) (NotDetected) Coronavirus HKU1 (PCR) (NotDetected) Coronavirus 229E (PCR) (NotDetected) SARS-CoV-2 (PCR) (NotDetected) Coronavirus NL63 (PCR) (NotDetected) E.chaffeensis DNA (PCR) Human Metapneumovir PCR (NotDetected) Influenza Type A (PCR) (NotDetected) Influenza Type B (PCR) (NotDetected) M. pneumoniae (PCR) (NotDetected) Parainfluenza 1 (PCR) (NotDetected) Parainfluenza 2 (PCR) (NotDetected) Parainfluenza 3 (PCR) (NotDetected) Parainfluenza 4 (PCR) (NotDetected) RSV (PCR) (NotDetected) Entero/Rhino (PCR) (NotDetected) 11/28/22 11/28/22 11/28/22 Range/Units 08:36 08:36 08:19 WBC 4.30 L (4.8-10.8) K/ul RBC 4.32 L (4.70-6.10) M/uL Hgb 13.6 L (14.0-18.0) g/dl POC Hgb 13.3 L (14.0-18.0) g/dl Hct 39.5 L (42.0-52.0) % POC Hct 39 L (42-52) % MCV 91.4 (80.0-100.0) fL MCH 31.5 (25.0-34.0) pg MCHC 34.4 (32.0-36.0) g/dL RDW Std Deviation 41.8 (36.4-46.3) fL RDW Coeff of Sohail 12.5 (11.5-14.5) % Plt Count 223 (130-400) K/uL MPV 10.6 (9.4-12.4) fL Immature Gran % (Auto) 1.2 % Neut % (Auto) 68.6 % Lymph % (Auto) 20.2 % [place] % (Auto) 8.6 % Eos % (Auto) 0.7 % Baso % (Auto) 0.7 % Neut # (Auto) 2.95 (1.40-6.50) K/uL Lymph # (Auto) 0.87 L (1.2-3.4) K/uL [place] # (Auto) 0.37 (0.11-0.59) K/uL Eos # (Auto) 0.03 (0-0.50) K/uL Baso # (Auto) 0.03 (0-0.2) K/uL Immature Gran # (Auto) 0.05 (0.01-0.20) K/uL PT (9.0-12.0) Seconds INR (0.9-1.1) POC Sodium 139 (135-144) mmol/L Sodium 139 (136-145) mmol/L POC Potassium 4.3 (3.3-5.0) mmol/L Potassium 4.4 (3.5-5.1) mmol/L POC Chloride 105 (101-112) mmol/L Chloride 106 (98-107) mmol/L Carbon Dioxide 25 (21-32) mmol/L POC Total CO2 24 (24-31) mmol/L Anion Gap 8 (3-11) POC Anion Gap 15.0 L (16-25) mmol/L POC BUN 17 (7-18) mg/dl BUN 17 (6-23) mg/dl Creatinine 0.76 (0.6-1.4) mg/dl POC Creatinine 0.8 (0.6-1.3) mg/dl Est Cr Clr Drug Dosing 87.9 ml/min Est GFR ( Amer) 105.6 ml/min Est GFR (Non-Af Amer) 91.1 ml/min BUN/Creatinine Ratio 22.4 H (10-20) Glucose 127 H (70-99(Fasting)) mg/dl POC Glucose (70-99) mg/dl POC Glucose (other) 126 H (70-99) mg/dl Calcium 8.9 (8.6-10.3) mg/dl POC Ioniz Calcium Alexei 1.12 (1.12-1.32) mmol/l Magnesium 1.9 (1.7-2.4) mg/dl Total Bilirubin 0.4 (0.2-1.0) mg/dl AST 17 (13-39) U/L ALT 15 (7-52) U/L Alkaline Phosphatase 62 (34-104) U/L Troponin I High Sens < 2.3 (0-20) pg/ml Total Protein 6.7 (6.0-8.3) gm/dl Albumin 3.9 (3.4-5.0) gm/dl Globulin 2.8 (2.5-4.0) gm/dl Albumin/Globulin Ratio 1.4 (0.9-2) Lipase 8 L (11-82) U/L TSH (0.300-4.500) uIu/ml Urine Color Urine Appearance (Clear) Urine pH (4.5-7.5) Ur Specific [place] (1.000-1.030) Urine Protein (Negative) Urine Glucose (UA) (Negative) Urine Ketones (Negative) Urine Blood (Negative) Urine Nitrite (Negative) Urine Bilirubin (Negative) Urine Urobilinogen (Negative) Ur Leukocyte Esterase (Negative) Urine WBC (Auto) (0-5) /hpf Urine RBC (Auto) (0-4) /hpf U Hyaline Cast (Auto) (0-5) /lpf U Epithel Cells (Auto) (0-5) /lpf Urine Bacteria (Auto) (Negative) Urine Crystals Calcium Oxalate Crystal (None Prsent) Urine Mucus (None Prsent) Urine Opiates Screen (Neg) Ur Methadone, Qual (Neg) Urine Barbiturates (Neg) Ur Phencyclidine (PCP) (Neg) U Amphetamin/Meth Scrn (Neg) MDMA (Ecstasy) Screen (Neg) U Benzodiazepines Scrn (Neg) Ur Cocaine Metabolite (Neg) U Marijuana (THC) Screen (Neg) U Marijuana THC Carboxy Drug Screen Comment Adenovirus (PCR) (NotDetected) Anaplasma Smear Babesia Smear Babesia microti DNA PCR B. pertussis DNA (PCR) (NotDetected) B.parapertussis DNA PCR (NotDetected) Lyme Disease IgG Ab (Negative) Lyme Disease IgM Ab (Negative) C. pneumoniae DNA (PCR) (NotDetected) Coronavirus OC43 (PCR) (NotDetected) Coronavirus HKU1 (PCR) (NotDetected) Coronavirus 229E (PCR) (NotDetected) SARS-CoV-2 (PCR) (NotDetected) Coronavirus NL63 (PCR) (NotDetected) E.chaffeensis DNA (PCR) Human Metapneumovir PCR (NotDetected) Influenza Type A (PCR) (NotDetected) Influenza Type B (PCR) (NotDetected) M. pneumoniae (PCR) (NotDetected) Parainfluenza 1 (PCR) (NotDetected) Parainfluenza 2 (PCR) (NotDetected) Parainfluenza 3 (PCR) (NotDetected) Parainfluenza 4 (PCR) (NotDetected) RSV (PCR) (NotDetected) Entero/Rhino (PCR) (NotDetected) 11/28/22 Range/Units 08:13 WBC (4.8-10.8) K/ul RBC (4.70-6.10) M/uL Hgb (14.0-18.0) g/dl POC Hgb (14.0-18.0) g/dl Hct (42.0-52.0) % POC Hct (42-52) % MCV (80.0-100.0) fL MCH (25.0-34.0) pg MCHC (32.0-36.0) g/dL RDW Std Deviation (36.4-46.3) fL RDW Coeff of Sohail (11.5-14.5) % Plt Count (130-400) K/uL MPV (9.4-12.4) fL Immature Gran % (Auto) % Neut % (Auto) % Lymph % (Auto) % [place] % (Auto) % Eos % (Auto) % Baso % (Auto) % Neut # (Auto) (1.40-6.50) K/uL Lymph # (Auto) (1.2-3.4) K/uL [place] # (Auto) (0.11-0.59) K/uL Eos # (Auto) (0-0.50) K/uL Baso # (Auto) (0-0.2) K/uL Immature Gran # (Auto) (0.01-0.20) K/uL PT (9.0-12.0) Seconds INR (0.9-1.1) POC Sodium (135-144) mmol/L Sodium (136-145) mmol/L POC Potassium (3.3-5.0) mmol/L Potassium (3.5-5.1) mmol/L POC Chloride (101-112) mmol/L Chloride (98-107) mmol/L Carbon Dioxide (21-32) mmol/L POC Total CO2 (24-31) mmol/L Anion Gap (3-11) POC Anion Gap (16-25) mmol/L POC BUN (7-18) mg/dl BUN (6-23) mg/dl Creatinine (0.6-1.4) mg/dl POC Creatinine (0.6-1.3) mg/dl Est Cr Clr Drug Dosing ml/min Est GFR ( Amer) ml/min Est GFR (Non-Af Amer) ml/min BUN/Creatinine Ratio (10-20) Glucose (70-99(Fasting)) mg/dl POC Glucose 123 H (70-99) mg/dl POC Glucose (other) (70-99) mg/dl Calcium (8.6-10.3) mg/dl POC Ioniz Calcium Alexei (1.12-1.32) mmol/l Magnesium (1.7-2.4) mg/dl Total Bilirubin (0.2-1.0) mg/dl AST (13-39) U/L ALT (7-52) U/L Alkaline Phosphatase (34-104) U/L Troponin I High Sens (0-20) pg/ml Total Protein (6.0-8.3) gm/dl Albumin (3.4-5.0) gm/dl Globulin (2.5-4.0) gm/dl Albumin/Globulin Ratio (0.9-2) Lipase (11-82) U/L TSH (0.300-4.500) uIu/ml Urine Color Urine Appearance (Clear) Urine pH (4.5-7.5) Ur Specific [place] (1.000-1.030) Urine Protein (Negative) Urine Glucose (UA) (Negative) Urine Ketones (Negative) Urine Blood (Negative) Urine Nitrite (Negative) Urine Bilirubin (Negative) Urine Urobilinogen (Negative) Ur Leukocyte Esterase (Negative) Urine WBC (Auto) (0-5) /hpf Urine RBC (Auto) (0-4) /hpf U Hyaline Cast (Auto) (0-5) /lpf U Epithel Cells (Auto) (0-5) /lpf Urine Bacteria (Auto) (Negative) Urine Crystals Calcium Oxalate Crystal (None Prsent) Urine Mucus (None Prsent) Urine Opiates Screen (Neg) Ur Methadone, Qual (Neg) Urine Barbiturates (Neg) Ur Phencyclidine (PCP) (Neg) U Amphetamin/Meth Scrn (Neg) MDMA (Ecstasy) Screen (Neg) U Benzodiazepines Scrn (Neg) Ur Cocaine Metabolite (Neg) U Marijuana (THC) Screen (Neg) U Marijuana THC Carboxy Drug Screen Comment Adenovirus (PCR) (NotDetected) Anaplasma Smear Babesia Smear Babesia microti DNA PCR B. pertussis DNA (PCR) (NotDetected) B.parapertussis DNA PCR (NotDetected) Lyme Disease IgG Ab (Negative) Lyme Disease IgM Ab (Negative) C. pneumoniae DNA (PCR) (NotDetected) Coronavirus OC43 (PCR) (NotDetected) Coronavirus HKU1 (PCR) (NotDetected) Coronavirus 229E (PCR) (NotDetected) SARS-CoV-2 (PCR) (NotDetected) Coronavirus NL63 (PCR) (NotDetected) E.chaffeensis DNA (PCR) Human Metapneumovir PCR (NotDetected) Influenza Type A (PCR) (NotDetected) Influenza Type B (PCR) (NotDetected) M. pneumoniae (PCR) (NotDetected) Parainfluenza 1 (PCR) (NotDetected) Parainfluenza 2 (PCR) (NotDetected) Parainfluenza 3 (PCR) (NotDetected) Parainfluenza 4 (PCR) (NotDetected) RSV (PCR) (NotDetected) Entero/Rhino (PCR) (NotDetected) Medications Administered Current Inpatient Medications Acetaminophen (Acetaminophen 325 Mg Tab) 650 mg PO Q4H PRN PRN Reason: pain/fever Stop: 12/28/22 14:22 Al Hydrox/Mg Hydrox/Simethicone (Aluminum/Magnesium Susp 30 Ml Udc) 30 ml PO Q6H PRN PRN Reason: Dyspepsia Stop: 12/28/22 14:22 Enoxaparin Sodium (Enoxaparin Inj 40 Mg/0.4 Ml Syr) 40 mg SQ Q24H EMI Stop: 12/28/22 14:29 Last Admin: 11/28/22 17:04 Dose: 40 mg Famotidine (Famotidine 20 Mg Tab) 20 mg PO DAILY PRN PRN Reason: Acid Reflux Stop: 12/28/22 14:25 Sodium Chloride (Nss 1000ml) 1,000 mls @ 125 mls/hr IV .Q8H EMI Stop: 12/28/22 08:44 Last Admin: 11/29/22 07:45 Dose: 125 mls/hr Ondansetron HCl (Ondansetron Inj 2 Mg/Ml 2 Ml Vial) 4 mg IV Q6H PRN PRN Reason: Nausea Stop: 12/28/22 14:22 Polyethylene Glycol (Polyethylene (Miralax) 17 Gm Pack) 17 gm PO DAILY PRN PRN Reason: Constipation Stop: 12/28/22 14:22
--- NOTE | 2022-11-29 09:57 | Neurology Consultation ---
Date of Consultation November 29, 2022 Assessment & Plan (1) Expressive aphasia: (2) Ataxia: (3) AMS (altered mental status): (4) Dizziness: (5) Weakness: Plan patient had a significant episode November 28 (woke with it) consisting of what sounds like expressive aphasia and some ataxia particularly in the left upper extremity. There was no focal weakness although he felt weak in general. There was some disorientation/confusion by history but the patient's mental status was otherwise unremarkable. He was lightheaded but not orthostatic. MRI of the brain showed no acute stroke. He had minimal old small vessel ischemic disease. This event was very stroke like and I suspect a TIA. Patient has a history of snoring and pauses in his breathing. He may have significant sleep apnea and this would put him at risk for stroke as well. The patient also seems to be fairly heavy alcohol user on a regular basis. Recommendations: 1. since the patient has a severe reaction to iodinated contrast, obtain MR angiography of the head and neck to evaluate his blood vessels. 2. Echocardiogram 3. Fasting lipid profile and hemoglobin A1c 4. The patient would need a sleep study to evaluate for apnea ( this is usually done as an outpatient ). 5. patient needs to discontinue or drastically cut back his alcohol usage. 6. consider 81 milligram aspirin tablet daily. Overall, I spent a total of 60 minutes with this case including review of records, review of MRI films, direct evaluation the patient at bedside, report generation, and discussion of the case with the patient and son at bedside as well as Dr. Pantoja including differential diagnosis and treatment options. History of Present Illness Reason for Consultation: patient is a 72-year-old, who I was asked to see at the request of Mary richard MD, for neurologic consultation regarding stroke-like symptoms. Requesting Physician: Mary Maria MD Attending Physician: James Pantoja MD History of Present Illness This patient has no history of hypertension, diabetes, heart disease, or previous stroke. Throughout the day November 27 he was doing well with no symptoms. He golfs and did well in the evening going to bed around 9 p.m.. He woke up at 06:30 on November 28 in no pain, however, when he tried to a stand up to go to the bathroom he was weak all over, lightheaded with some nausea ( no vomiting) and found it difficult to walk. He managed to get to the bathroom and back but felt worse afterwards and laid back down. He had trouble using his phone and he was not speaking well. His son came over to the house found the patient was not forming sentences correctly and had very slow speech. He seemed disoriented and lost. He did not have a facial droop. He arrived November 28 at the emergency room at 08:12, with a temperature 36.9, pulse 90 and regular, respiratory rate 14 and comfortable, blood pressure 138/79 and O2 saturation 95 percent. In the emergency room he was described as having slow, deliberate speech and difficulty forming words. He could comprehend and follow commands. he was questionably ataxic in the left arm and leg but did not have focal weakness ( seemed a little weak in general). CBC showed mild anemia and Chem profile showed a glucose of 127. TSH was normal at 1.1 and urinalysis was unremarkable. A bio fire showed no positive organisms and Lyme antibody titers were negative. A urine tox screen was positive for marijuana. Pulse and blood pressure did not show significant change, lying to standing. Chest x-ray was unremarkable. CT scan of the head was unremarkable. MRI of the brain showed no acute stroke. There is some mild generalized atrophy and minimal all old small vessel ischemic disease. According to the patient's son who is present in the room today, the patient gradually got better over the course of November 28. When he left the patient around 840 last evening the patient was markedly improved but still had some word-finding difficulties. This morning, when the patient woke and the patient's son came to visit, he felt that the patient was back to baseline with speech. The patient self has no headache, lightheadedness or dizziness, or speech problems. He has no feelings of weakness or numbness and his balance is reasonable. He has been to the bathroom several times without issue. Blood pressure is 157/82 with pulse of 58. CBC again showed some mild anemia and Chem profile was unremarkable although up calcium was 8.0. Additional history from the son states the patient has been having considerable snoring at night with pauses in breathing. This is been going on for a long time. This is intensified if he drinks alcohol prior to bed. Patient states that he is about 20 drinks of beer per week. He does not drink every day he states. Allergies Allergy/AdvReac Type Severity Reaction Status Date / Time bee venom protein (honey bee) Allergy Severe ANAPHYLAXIS Verified 03/21/22 13:23 Iodinated Contrast Media Allergy Severe Swelling;An Verified 03/21/22 13:23 aphylaxis; levofloxacin Allergy Intermediate general Verified 03/21/22 13:23 joint pain/burning tamsulosin Allergy Intermediate FLUSHED Verified 03/21/22 13:23 and itchy/burning of eyes Home Medications Medication Instructions Recorded Confirmed Type calcium carb,cit ER 600 mg-vit D3 1 tab PO QDD 01/16/19 11/28/22 History 12.5 mcg (500 unit) tablet,ext.rel epinephrine 0.3 mg/0.3 mL 0.3 mg (0.3 mL) IM Q3H PRN 01/16/19 11/28/22 Rx injection, auto-injector (EpiPen bronchodilation #2 ea 2-William) ibuprofen-diphenhydramine citrate 1 cap PO HS PRN Sleep 01/16/19 11/28/22 History 200 mg-38 mg tablet (Advil PM) krill 1,000 mg-omega-3 170 mg-dha 1 cap PO QDD 01/16/19 11/28/22 History 50 mg-epa 80 gg-jksont-crwcs capsule (krill oil) multivitamin 1 tab PO QDD 01/16/19 11/28/22 History sildenafil (pulm.hypertension) 20 40 mg PO UD PRN Sexual Activity 01/16/19 11/28/22 History mg tablet (Revatio) famotidine 20 mg tablet 20 mg PO DAILY PRN Acid Reflux 03/26/19 11/28/22 History Patient History Medical History Barretts esophagus BPH (benign prostatic hyperplasia) History of gastric ulcer History of radiation therapy for prostate cancer 2018 Melanoma of back 2016 Prostate cancer (12/18/16) 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 Surgical History History of arthroscopy of left knee History of cholecystectomy 2005 History of colonoscopy with polypectomy History of esophagogastroduodenoscopy (EGD) History of Mohs micrographic surgery for skin cancer multiple History of prostate biopsy History of root canal procedure Family History Mother , age 62 colon cancer Family hx of colon cancer Father , age 78 of non-Hodgkin's lymphoma Non-Hodgkin lymphoma Other No family history of adverse response to anesthesia Social History (Updated 11/29/22 @ 09:49 by Daniel Laguna MD) Smoking Status: Never smoker Second Hand Exposure: Yes (parents smoked); Do You Dip or Chew Tobacco: No; Hx Alcohol Use: Yes Alcohol type: beer and hard liquor Alcohol Intake Frequency: 4 or More x per/Week Alcohol Intake Frequency Comment: 20 beers per week Hx Substance Use: Yes Last Used Substance: Days (ago) Last Used Substance Other:: Yesterday Preferred Language: Nigerien Communication Ability: Effective Import Export Clerk Required: No Beliefs That Will Affect Care: None Current Living Situation: Alone Feels Safe at Home: Yes Assistive Devices: Glasses Review of Systems Constitutional: no fever, no fatigue and no weakness Eyes: no diplopia, no eye pain and no worsening vision Ear, Nose, Mouth, Throat: no ear pain, no tinnitus, no hearing loss, no dizziness, no snoring, no hoarseness and no dysphagia Respiratory: no cough and no dyspnea Cardiovascular: no chest pain, no palpitations and no lightheadedness Gastrointestinal: no abdominal pain, no nausea and no vomiting Musculoskeletal: + neck pain ( chronic intermittent cervical spine pain); no back pain, no radicular pain, no joint pain and no myalgia Integumentary: no rash and no lesions Neurologic: no gait abnormality, no localized weakness, no generalized weakness, no tingling, no numbness, no tremor(s), no abnormal movements, no headache(s), no abnormal speech, no confusion and no memory loss Psychiatric: no depression, no irritability, no anxiety, no difficulty concentrating, no confusion and no hallucinations Endocrine: no fatigue and no flushing Hematologic / Lymphatic: no easy bleeding and no easy bruising Allergy / Immunological: no urticaria and no problem reported Exam (Neuro) Physical Exam: The patient is right-handed. The patient is awake, alert, and attentive. Speech is normal without any aphasia or dysarthria. The patient can name objects, repeat phrases, and has normal spontaneous speech. Mentation and thought processes are intact, with orientation to person, place and time, and normal fund of knowledge. Attention and concentration are normal. Mood and affect are normal and appropriate. General appearance and grooming are normal. Short and long-term memory are intact to conversation. Pupils are 4 mm bilaterally and reactive to light. Extraocular eye muscles are intact without nystagmus. Visual acuity and visual ramírez seem normal grossly to confrontation. There are no deficits to sensation in the face in all 3 distributions of the fifth cranial nerve bilaterally. Corneal reflexes are positive bilaterally. Facial strength and symmetry was normal bilaterally. Hearing seems normal bilaterally. Palate moves well without asymmetry. There is normal sternocleidomastoid and trapezius (shoulder shrug) strength bilaterally. Tongue is midline with good strength bilaterally. Neck has a full range of motion without discomfort. There are no cervical bruits bilaterally. There are no cranial or ocular bruits. Heart is without murmur. There is a regular rhythm and rate. Cervical, thoracic, and lumbar spine are nontender to palpation. Gait is narrow based, with good arm swing, turns, and stance. Balance is normal eyes open or closed. With outstretched arms there is no drift. There are no resting, postural, or action tremors. There is no ataxia with finger to nose testing. There is good facility in the hands. No other abnormal involuntary movements are noted. Motor strength is 5/5 diffusely in the arms bilaterally including deltoids, biceps, triceps, brachioradialis, wrist flexors and extensors, production grip, and intrinsic hand muscles. Motor strength is 5/5 diffusely in the legs bilaterally including hip flexors, quadriceps, hamstrings, gastrocnemius, tibialis anterior, tibialis posterior, and Peroneii muscles. Toe extensors are normal and there is good bulk in the extensor digitorum brevis muscles bilaterally. The limbs have good tone without rigidity or spasticity. There is no atrophy noted in the muscles. Muscle bulk is normal, there is no tenderness to palpation, no myotonia to percussion, and no fasciculations seen. Sensory examination is intact to touch and pin throughout all 4 limbs diffusely. Reflexes are 2/4 in the biceps, triceps, brachioradialis, quadriceps, and Achilles tendons bilaterally. There is no clonus bilaterally. Toes are downgoing with plantar stimulation bilaterally. Peripheral pulses are present and of normal quality distally in all 4 limbs. There is no peripheral edema noted in the limbs. Results & Data Vital Signs (Past 12 Hours) Vital Signs Temp Pulse Resp BP Pulse Ox O2 Del Method 11/29/22 07:55 36.8 C 58 L 16 157/82 H 98 Room Air PG Care Time/CCT Total # of Minutes Spent Total Time Spent with Patient: Total time spent is greater than 50% in coordination of care (as documented) at patient's floor/unit and/or counseling patient: Coding Level of Care Code 96093 INT INP/OBS CARE 3/75MIN Diagnoses Expressive aphasia R47.01 Ataxia R27.0 AMS (altered mental status) R41.82 Dizziness R42 Weakness R53.1
[2022-11-29 10:38] LABS: Chol HDL Ratio 3.7 (0-5)
[2022-11-29] MEDS: ASPIRIN 81 MG ECTAB PO SCH (10:57)
[2022-11-29 11:11] LABS: Estimated Average Glucose 103 mg/dl; Hemoglobin A1C 5.2 % (4.5-5.6)
[2022-11-29] MEDS ORDERED: LORazepam 0.5 MG TAB PO PRN (12:53)
--- NOTE | 2022-11-29 14:33 | Magnetic Resonance Report ---
MR angio neck wo con, MR angio head wo con CLINICAL HISTORY: poss cva/tia TECHNIQUE: 3D time of flight MRA of the head and neck was performed without intravenous contrast. 3-D reconstructions were obtained in multiple planes. Comparison: Comparison is made to MR brain 09/14/2022 FINDINGS: Flow signal consistent with patency is shown within the common carotid, cervical segments of the inte rnal carotid, external carotid, and vertebral arteries. No aneurysm, dissection, hemodynamically sign ificant flow stenosis, nor occlusion is present. Flow signal is shown in the intracranial segments of the internal carotid arteries, the anterior, mid dle and posterior cerebral arteries, the anterior and posterior communicating arteries, cerebellar ar teries, the intracranial segments of the vertebral arteries, and the basilar artery. No aneurysm, ar teriovenous malformation, dissection, nor hemodynamically significant flow stenosis is shown. Assessment of stenosis of the internal carotid arteries is based on NASCET criteria. IMPRESSION: No evidence of acute intracranial abnormality. In particular, no occlusion, hemorrhage, or aneurysmal disease is seen. Patency of the bilateral carotid and vertebral arteries with no evidence of hemodyn amically significant stenosis. ACT 112: Negative or not required by law. Electronically signed by: Kendell Moreland M.D. 11/29/2022 2:31 PM
[2022-11-29] MEDS: ENOXAPARIN INJ 40 MG/0.4 ML SYR SQ SCH (15:16)
--- NOTE | 2022-11-29 20:24 | Ultrasound Report ---
ULTRASOUND OF THE CAROTID ARTERIES CLINICAL HISTORY: Transient ischemic attack. COMPARISON STUDY: MR angiography of the neck dated 11/29/2022. TECHNIQUE: Real-time, grayscale, and color Doppler sonography of the carotid arteries is performed. I mages are reviewed in the transverse and longitudinal planes. FINDINGS: The carotid arteries are patent bilaterally and demonstrate antegrade flow. There is no significant a therosclerotic plaque seen. Normal doppler arterial waveforms are seen throughout. Velocity measureme nts are listed below. Common carotid peak systolic velocity (cm/sec): RIGHT: 94 LEFT: 89 ICA proximal peak systolic velocity (cm/sec): RIGHT: 47 LEFT: 52 ICA mid peak systolic velocity (cm/sec): RIGHT: 50 LEFT: 48 ICA distal peak systolic velocity (cm/sec): RIGHT: 56 LEFT: 67 ICA/CC peak systolic ratio: RIGHT: 0.6 LEFT: 0.8 Antegrade flow was shown in the vertebral arteries. The external carotid arteries are patent. IMPRESSION: 1. There is no sonographic evidence of hemodynamically significant stenosis in the right or left hanson tid arterial system. 2. Antegrade flow is shown in the vertebral arteries. ACT 112: Negative or not required by law. Electronically signed by: Xavier Carreno M.D. 11/29/2022 8:22 PM
[2022-11-30] MEDS: SODIUM CHLORIDE 0.9% 1000ML 1,000 ML IV SCH ×2 (00:52→08:05)
[2022-11-30 07:01] LABS: Hematocrit (blood only) 37.4 % (42.0-52.0); Hemoglobin 12.8 g/dl (14.0-18.0); Mean Corpuscular Hemoglobin 31.1 pg (25.0-34.0); Mean Corpuscular Hgb Conc 34.2 g/dL (32.0-36.0); Mean Platelet Volume 10.8 fL (9.4-12.4); Platelet Count 184 K/uL (130-400); RDW Coefficient of Variation 12.7 % (11.5-14.5); RDW Standard Deviation 41.8 fL (36.4-46.3); Red Blood Count 4.11 M/uL (4.70-6.10); White Blood Count 3.72 K/ul (4.8-10.8)
[2022-11-30 07:26] LABS: BUN Creatinine Ratio 13.4 (10-20); Calcium 8.1 mg/dl (8.6-10.3); Creatinine Clr Calc Pharmacy 81.7 ml/min; Est GFR (African American) 102.4 ml/min; Est GFR (Non-African American) 88.3 ml/min; Magnesium 1.9 mg/dl (1.7-2.4); Potassium 3.7 mmol/L (3.5-5.1)
[2022-11-30] MEDS: ASPIRIN 81 MG ECTAB PO SCH (08:04)
--- NOTE | 2022-11-30 10:59 | Neurology Progress Note ---
Date of Service November 30, 2022 Assessment & Plan (1) Expressive aphasia: (2) Ataxia: (3) AMS (altered mental status): (4) Dizziness: (5) Weakness: Plan Thepatient had a significant episode November 28 (woke with it) consisting of expressive aphasia and some ataxia particularly in the left upper extremity. There was no focal weakness, although he felt weak in general. There was some disorientation/confusion by history, but the patient's mental status was otherwise unremarkable. He was lightheaded but not orthostatic. MRI of the brain showed no acute stroke. He had minimal old small vessel ischemic disease. This event was very stroke -like and I suspect a TIA. Patient has a history of snoring and pauses in his breathing. He may have significant sleep apnea and this would put him at risk for stroke as well. The patient also seems to be fairly heavy alcohol user on a regular basis. Recommendations: 1. Continue 81 mg aspirin tablet daily. 2. The patient needs an Overnight polysomnogram to evaluate for apnea (I will defer to his PCP to order this is an outpatient ). 3. Discontinue or drastically cut back his alcohol usage. 4. Please contact me if I can be of further assistance on this case. Overall, I spent a total of 35 minutes with this case including review of records, review of MRI films, direct evaluation the patient at bedside, report generation, and discussion of the case with the patient and son at bedside as well as Dr. Pantoja including differential diagnosis and treatment options. Admission and Anticipated Discharge Date Admission Date: November 28, 2022 Subjective Patient has no complaints of pain or weakness. Speech is normal and mood is good. Echocardiogram showed mild left ventricular hypertrophy but was otherwise unremarkable. Triglycerides are 186 and total cholesterol 196. Hemoglobin A1c was 5.2. MR angiography of the head and neck without contrast showed no significant vascular stenoses or anomalies. I spoke with physical therapy and he was doing well walking in the hallways and even climbing stairs Results & Data Vital Signs (Past 12 Hours) Vital Signs Temp Pulse Resp BP Pulse Ox O2 Del Method 11/30/22 07:35 36.5 C 63 16 154/78 H 94 Room Air Exam (Neuro) Physical Exam: he was awake and alert. Speech was without aphasia or dysarthria. Mood and affect were normal appropriate. Thought processes were intact. Extraocular eye muscles are intact without nystagmus. There is no facial droop Coordination was normal in the arms. Strength was symmetrical in all limbs. Gait was quite normal. PG Care Time/CCT Total # of Minutes Spent Total Time Spent with Patient: Total time spent is greater than 50% in coordination of care (as documented) at patient's floor/unit and/or counseling patient: Coding Level of Care Code 18242 SUB INP/OBS CARE 2/35MIN Diagnoses Expressive aphasia R47.01 Ataxia R27.0 AMS (altered mental status) R41.82 Dizziness R42 Weakness R53.1 Time Spent (min) 35
[2022-11-30] MEDS ORDERED: ATORVASTATIN 40 MG TAB PO SCH (11:15)
--- NOTE | 2022-11-30 11:15 | Discharge Summary ---
Date of Service November 30, 2022 Admission HPI Per Admitting Provider Mr. Jarvis is a 72 year old male with pmhx of Aj esophagus, SCC mult locations, prostate ca, and BPH. He presents with AMS. Thus far workup (including CTH and MRI brain) is unrevealing for anything other than + UDS for THC. Mr. Jarvis was in his usual state of health on the day prior to presentation, and in fact was out playing golf. When he got up to go to the bathroom this morning he was feeling weak and lightheaded/dizzy. He called his son who had to break the door down to get to him. His son states the patient was unable to walk due to what sounds like ataxia. He also notes Mr. Jarvis struggled to communicate. He was speaking very soft and slow, and had a hard time with word finding. This has never happened before. His son notes improvements in terms of communication and movement, but still not back to baseline. The patient does not appreciate any change in speech at this point and feels that other for some lightheadedness and being off balance he is back to baseline. Pt denies any recent or current illness. He denies GUY, focal weakness, numbness, tingling, incontinence, change in vision, CP/pressure, sob, f/c/n/v, abdominal pain or diarrhea. He has no other complaints. His son is concerned for possible tick born illness including [place] virus which has recently been found in areas the patient frequents. The patient spends a lot of time outdoors. ED course: vs notable for HR 112, BP 147/90, O2 89% ORA, wnl on 2L. Remaining VS unimpressive. b/w notable for wbc 4.3, h/h 13.6/39.5, remaining cbc and cmp are unimpressive/wnl. Mg and TSH wnl. UA is neg for bacteria. Respiratory pathogen panel is negative. Tick born studies are neg thus far (mult still pending) UDS + THC only CXR, CT head, MRI brain all negative for acute pathology. He was given IVF, Ativan, and placed in observation on hospitalist service. Admission Exam Per Admitting Provider General:NAD, well nourished, well developed, non-toxic appearing Head:NC AT Eyes: PERRL, EOMI, anicteric sclera, no conjunctival injection Nose:nares patent Mouth:dry Neck:supple, trachea midline CV:RRR S1 S2 Pulm:CTA b/l Abd/GI:+ BS, soft, NT, ND, no guarding :no cuevas Ext:no pretibial edema, peripheral pulses intact MSK:normal bulk and tone Neuro:alert, oriented x 3. CN II-XII intact, no dysarthria but soft spoken and slow to answer. moving all 4 extremities symmetrically. b/l hip adduction weakness is symmetric. sensation is intact. No dysmetria on finger to nose and heel to casanova testing. Psych:pleasant mood and affect Skin:visible skin is warm, dry, and without rash. Pt not fully undressed for exam. Principal Diagnosis TIA Discharge Exam General:NAD, well nourished, well developed, in NAD Head:NC AT Eyes: PERRL, EOMI, anicteric sclera, no conjunctival injection Neck:supple CV:RRR S1 S2 Pulm:CTA b/l Abd/GI:+ BS, soft, NT, ND, no guarding Ext:no pretibial edema, peripheral pulses intact MSK:normal bulk and tone Neuro:alert, oriented x 3. CN II-XII intact, no dysarthria. moving all 4 extre mities symmetrically. sensation is intact. Psych:pleasant mood and affect Skin: warm, dry Discharge Data Allergies Allergy/AdvReac Type Severity Reaction Status Date / Time bee venom protein (honey bee) Allergy Severe ANAPHYLAXIS Verified 03/21/22 13:23 Iodinated Contrast Media Allergy Severe Swelling;An Verified 03/21/22 13:23 aphylaxis; levofloxacin Allergy Intermediate general Verified 03/21/22 13:23 joint pain/burning tamsulosin Allergy Intermediate FLUSHED Verified 03/21/22 13:23 and itchy/burning of eyes Consultations 11/28/22 13:47 ED Decision to Admit Stat 11/28/22 16:33 Consult Neurology Routine Ordered Studies 11/28/22 08:36 CT head/brain wo con Stat There is no hemorrhage, mass effect, or evidence of acute territorial ischemia by CT criteria. 11/28/22 10:05 MR brain wo con Stat No acute intracranial abnormality. 11/29/22 10:05 MR angio head wo con Urgent IMPRESSION: No evidence of acute intracranial abnormality. In particular, no occlusion, hemorrhage, or aneurysmal disease is seen. Patency of the bilateral carotid and vertebral arteries with no evidence of hemodynamically significant stenosis. 11/29/22 10:07 MR angio neck wo con Urgent IMPRESSION: No evidence of acute intracranial abnormality. In particular, no occlusion, hemorrhage, or aneurysmal disease is seen. Patency of the bilateral carotid and vertebral arteries with no evidence of hemodynamically significant stenosis. 11/29/22 14:28 US carotid doppler BI Urgent 1. There is no sonographic evidence of hemodynamically significant stenosis in the right or left carotid arterial system. 2. Antegrade flow is shown in the vertebral arteries. Hospital Course (1) AMS (altered mental status): no e/o infectious etiology or CVA on initial work up gradually improved and now back to baseline UDS + THC. Extent of symptoms is beyond what I would expect from THC. Per latrice ent and family at bedside it sounds like Mr. Jarvis gets his weed from a consistent and reliable local source. They do not believe there is any possibility for contamination with other illicit substances. It also sounds like he is a habitual marijuana user and has not used any amount that is out of the ordinary for him (though they did not provide any specifics). f/u remaining tick-born panel Neurology consulted - likely TIA, currently back to baseline - further work- up recommended - MRA head and neck, echo, fasting lipid panel, a1c A1c 5.2%, LDL 106 Echo -mild concentric LVH. LV wall motion is normal. LV systolic function is normal. The LVEF 55 to 60%. There is mild mitral regurg. Grade 1 diastolic dysfunction. Imaging studies as above (2) Hypoxia: no clear cause other than perhaps had some suppressed respiratory drive at presentation, possibly d/t mental status transient, briefly required 2 LPM O2, resolved without further intervention CXR neg for acute pathology denies sob, dyspnea Saturating 94% on RA (3) Weakness: see under AMS (4) Dizziness: see under AMS Total Time Total Time Spent Total Time Spent (In Minutes): 40 Discharge Plan Discharge Items Patient Disposition: Home - Self-Care Reason For Visit: AMS Discharge Diagnosis: TIA Activity: Per Instructions section Non-emergency contact: Primary Care Provider Call non-emergency contact if: you have any medication questions and your symptoms worsen Follow-up/Referrals: Pedro James MD [Primary Care Provider] - (Date & Time 12/05/2022 2:00 PM Provider Lisa Tate Department [facility] ) Diet: Heart Healthy Addtl Attending Provider Instructions: Follow-up with your primary care doctor, the appointment was scheduled for you for December 05. Take aspirin 81 mg daily and atorvastatin 40 mg daily. Pending Studies at Discharge: Yes Studies:: tick borne panel Stand-Alone Forms: [facility] [place], Smoking Cess[place] Medications and DC Order Prescriptions: New aspirin 81 mg Tablet,Delayed Release (Dr/Ec) 81 mg PO QAM Qty: 30 0RF atorvastatin 40 mg tablet 40 mg PO DAILY Qty: 30 0RF Continued famotidine 20 mg tablet 20 mg PO DAILY PRN (Reason: Acid Reflux) multivitamin Tablet 1 tab PO QDD sildenafil (pulm.hypertension) [Revatio] 20 mg tablet 40 mg PO UD PRN (Reason: Sexual Activity) Advil PM 200-38 mg Tablet 1 cap PO HS PRN (Reason: Sleep) calcium carb and citrate-vitD3 600 mg calcium- 500 unit Tablet Extended Release 1 tab PO QDD krill oil [id number] mg Capsule 1 cap PO QDD epinephrine [EpiPen 2-William] 0.3 mg/0.3 mL auto-injector 0.3 mg IM Q3H PRN (Reason: bronchodilation) Qty: 2 0RF Discharge Orders: Discharge Order (Routine); Ordered 11/30/22 Ordered By: James Coley/Other Patient Handouts: Symptoms of Stroke, What Is Ischemic Stroke?, What Is a TIA?, Risk Factors for Stroke Admission Data Admit Date/Time: 11/28/22 14:25 Attending Provider: James Pantoja Admit Provider: Mary Maria Primary Care Provider: Pedro James Other Providers: Mary Maria ; Daniel Laguna Other Interventions: Discharge Summary Assessment (RN) Last Done: 11/30/22 10:54
--- NOTE | 2022-11-30 22:22 | Electrocardiogram Report ---
Test Reason : Blood Pressure : / mmHG Vent. Rate : 086 BPM Atrial Rate : 086 BPM P-R Int : 176 ms QRS Dur : 096 ms QT Int : 382 ms P-R-T Axes : 044 008 028 degrees QTc Int : 457 ms Normal sinus rhythm Normal ECG When compared with ECG of 13-DEC-2010 16:46, QT has lengthened Confirmed by Pradip Hannah ([id number]) on 11/30/2022 10:22:01 PM Referred By: REFERRED SELF Confirmed By:Pradip Hannah
[2022-12-01 10:16] LABS: Marijuana Quant, GCMS Urine 676 ng/mL (<5)
[2022-12-01 14:17] LABS: Babesia microti DNA Not Detected (Not Detected)
[2022-12-04 01:06] LABS: Ehrlichia chaff DNA Bld Negative (Negative)
== END 2022-11-30 12:59 | disposition home or self-care (01) ==
LOC: ED 08:05 → 3W 08:05 → SUATTDRO 14:25 → 3W 15:47